=== PATIENT | male | born 1965 | race Caucasian/White ===

== ENCOUNTER 2025-01-04 08:00 | Outpatient (RCR) | payer OTHER, SELFPAY ==
--- NOTE | 2025-01-04 09:05 | BH.SGPN.GN ---
Behaviors/Verbalizations/Mental Status: [] Eye contact is good. Motor activity is appropriate. Appearance is casual. Speech is Appropriate. Mood is depressed. Affect is congruent. Thoughts are linear and logical. No evidence of psychosis. Reviewed daily check in sheet and no reports of suicidal ideations or intent. Client Response/Progress/Benefit: [] Pt participated at times during the group discussions. Attentive. Daily symptom tracker notes 2/5 for depression and anxiety. Today was pt's first day in IOP. Briefly introduced himself and shared that he recently admitted himself to a 30day residential facility for depression and anxiety. After discharge he was functioning well until recent decompensation. Shared primary stressor is that his daughter was diagnosed with cancer. No progress noted as this was pt's first day. Benefited from group support, encouragement, and feedback. Will continue in IOP to prevent decompensation, increase healthy coping, and provide support. Narrative Note: []
--- NOTE | 2025-01-04 10:01 | BH.COMM ---
Communication Note Communication with Client Communication Note: Met with pt to complete initial paperwork and administer the CSSR-S screening and risk assessment. Pt is a mild risk as pt denies having any past or current suicidal ideations. Pt denies history of suicide attempts and denies history of self-harm. Pt admits to having occasional thoughts of , but he shared ?I?ve seen too many people be impacted by suicide and I'd never do that.? No access to weapons. Discussed case with Dr. Najera and pt will be admitted to [facility] tx with a diagnosis of F33.2 MDD.
--- NOTE | 2025-01-04 10:10 | BH.SGPN.GN ---
Behaviors/Verbalizations/Mental Status: []Eye contact is fair. Motor activity is appropriate. Appearance is casual. Speech is Appropriate. Mood is euthymic. Affect is congruent. Thoughts are linear and logical. No evidence of psychosis. Client Response/Progress/Benefit: []Pt participated in the group discussions AEB providing input and taking notes. Attentive during psychoeducation on SMART Goal Setting. Pt worked with group to identify common barriers to goal setting which included; mental health struggles, energy/motivation, limited support, change to routine, lack or resources, having unrealistic goals, and our internal expectations. Group also identified benefits of goals, which included: promotes a sense of accomplishment, it challenges oneself, can boast confidence, and can cause positive change/growth. Benefited from increased awareness of mental health benefits of goals as well as psychoeducation on SMART goal criteria. Will continue in IOP to challenge distorted thoughts, increase consistent healthy coping skills, and prevent decompensation.
--- NOTE | 2025-01-04 11:10 | BH.SGPN.GN ---
Behaviors/Verbalizations/Mental Status: []Pt alert and oriented. Appearance is casual, hygiene is appropriate. Eye contact good. Motor activity appropriate. Speech within normal limits. Affect is anxious. Mood is constricted. Thoughts linear, logical, no signs of hallucinations or delusions. Client Response/Progress/Benefit: [] Pt was engaged during discussion and experiential activity. Completed the worksheet challenging them to develop a personal SMART goal. Pt chose a SMART goal to ?not upset my .? Believes this goal will benefit pt by ?having a better atmosphere at home.? Identified obstacles such as lack of discipline and poor follow through. Brainstormed strategies to help manage potential barriers. Benefited from this group by developing a short-term SMART goal related to mental health. Will continue IOP to prevent decompensation, reduce work-related stress, and improve daily functioning. ??? Narrative Note: []
--- NOTE | 2025-01-05 09:05 | BH.SGPN.GN ---
Behaviors/Verbalizations/Mental Status: [] Pt alert and oriented, neatly dressed and groomed. Eye contact good. Motor activity appropriate. Speech within normal limits. Affect constricted, mood anxious. Thoughts linear, logical, no signs of hallucinations or delusions. Reviewed pt?s symptom tracker, no risk for suicidal ideation, plan, or intent 01/05/25. Client Response/Progress/Benefit: []Pt was an active participant in group discussions. Attentive. Able to identify mental health wins including coming back for ?day two of IOP? and being able to accomplish some work last night. Pt's stressor today is his daughter?s health as she is ?half way through chemo.? The group offered pt suggests managing this stressor and emotional support which pt reported was helpful. Pt is feeling ?a little anxious.? this morning. Pt receptive to feedback from peers. Benefited from group support, encouragement, and feedback. Progress noted. Will continue IOP tx to prevent decompensation, increase use of healthy coping skills, and improve functioning. Narrative Note: []
--- NOTE | 2025-01-05 10:10 | BH.SGPN.GN ---
Behaviors/Verbalizations/Mental Status: []Eye contact is fair. Motor activity is appropriate. Appearance is casual. Speech is Appropriate. Mood is content. Affect is constricted. Thoughts are linear and logical. No evidence of psychosis. Client Response/Progress/Benefit: []Pt was an active participant in group discussions. Attentive during psychoeducation on the 4 communication styles (Passive, Passive-Aggressive, Aggressive, and Assertive) and the obstacles to effective communication. Contributed during interactive discussion on the benefits of communicating effectively. Worked well with peers to identify the benefits and disadvantages to the different communication styles. Pt believes that they are primarily assertive but can be aggressive if feeling unheard. Benefited from increased understanding of communication styles and how these can impact effective communication. Will continue in IOP to improve mood stability, challenge negative thoughts, and prevent decompensation. Narrative Note: []
--- NOTE | 2025-01-05 11:10 | BH.SGPN.GN ---
Behaviors/Verbalizations/Mental Status: []Pt alert and oriented, casually dressed and groomed. Eye contact good. Motor activity restless. Speech within normal limits. Affect congruent, mood euthymic and anxious. Thoughts linear, logical, no signs of hallucinations or delusions. Client Response/Progress/Benefit: [] Pt responded well to session AEB pt listening attentively to others and providing input during group discussion on the pay offs and costs of the different communication styles. Pt able to connect how current communication style impacts mental health. Connected with peers? comments about the importance of using assertive communication. Pt seemed to benefit from increasing awareness of healthy strategies to improve communication and worked with peers during the experiential activity to practice assertive communication. Pt engaged in self-reflection activity in which they identified what they want to work on to improve communication. Will continue IOP tx to improve emotion regulation, increase consistent use of healthy coping skills, and prevent decompensation.
--- NOTE | 2025-01-08 08:27 | BH.PSY.EVA_ITS ---
Intake Vital Signs 01/08/25 08:48 Height 1.83 m Weight: 121.563 kg BP 146/92 H Pulse 82 Intake Visit Reasons: Intake MDD Allergies No Known Allergies Allergy (Verified 01/08/25 08:26) Medications ?Medication ?Instructions ?Recorded ?Confirmed ?Type desvenlafaxine succinate 100 mg 100 mg PO DAILY 01/08/25 History tablet,extended release 24 hr (Pristiq) PFSH () Surgical History (Updated 01/08/25 @ 08:28 by Rosey Millan) History of varicose vein procedure HPI () History of Present Illness History provided by: patient Chief complaint: IOP intake for MDD HPI: Stuart is a 59y/o male who presented to [facility] IOP program for further evaluation and treatment of MDD and KAT. Stuart is initially from [place] but has lived in [facility] for over 20 years. He struggled with depression and anxiety for years and recently was in a residential program in [place] and completed 30 days which included PHP and he was discharged January 2024. Had done fairly well until August 2024 when he noticed increased mood dysregulation and significant anxiety and began to spiral. His daughter was then diagnosed with cancer in September 2024 and he has progressively had worsened depression with low energy, hopelessness, poor concentration, poor sleep, passive thoughts of related to daughter's illness, alteration in appetite. Patient presents to the [facility] IOP program due to concerns over this recent regression and worsened symptoms as he and are concerned that if this is not addressed now he will need to return to residential treatment. Today he endorses the symptoms as above and that he has been feeling depressed and anxious. When he was in [place] residential he was started on Pristiq which helped his anxiety a lot and helped his mood but he feels like his mood has backslid while anxiety has maintained slightly better control. Patient is not sure how long he is struggling with depression and anxiety however it sounds as though it may have gone back to childhood. He endorses that his dad had a history of depression and anger issues and was ultimately hospitalized in a locked unit and needed ECT, patient felt this was very traumatic and has since done EMDR which he did find helpful. He notes stressor of daughter being diagnosed with Hodgkin's lymphoma, she has a 98% chance of cure however he notes he focuses on the 2% chance of not being cured. She is on round 6 of chemo out of 12 and she moved home for her treatment. Patient has significant stress and anxiety over this, also notes that he no longer has significant contact with his sister or mother as he and sister had a disagreement 2 years ago and now they no longer talk. He felt his mother's care was inconsistent and he ultimately called APS and sister was upset and no longer speaks with him, he will occasionally talk to mom on the phone however she has Alzheimer's so they are very brief conversations and he is not sure how she was doing. This is an additional stressor. Patient notes he has not been sleeping well recently with poor concentration and difficulty with memory. Energy is a little bit better in the morning but waned significantly throughout the day. Patient denies any panic attacks, notes anxiety and that he has always been a worrier but this specifically has been better with Pristiq. When asked about OCD he said when he was traveling he used to have a lot of checking behaviors and would have to do certain things multiple times, this is improved with decrease in travel and Pristiq as well. No history of meg or psychosis, no active SI, no HI, AH, VH. No crying spells. Current psychiatric medications: Pristiq 100 mg, was placed on Pristiq in the residential program in [place] after they did a genetics test and after he moved home this was increased to 100 mg. Its helped overall mostly with anxiety and somewhat depression. Prior to that he was on sertraline which she did find some benefit from but was switched due to the genetic tests. Side effect concerns: Does note sexual side effects from the Pristiq and also from Zoloft and Prozac when he tried them Past psychiatric treatment Hx: -Previous diagnoses: MDD, KAT -Psychiatrist: Not presently -Therapist: Multiple therapists over the years, seeing Alex Gambino and does find that very helpful -Psychiatric hospitalizations: Hospitalized in residential treatment in [place] for 30 days and discharged in January 2024, also completed a [facility] program there. No other hospitalizations -Suicide attempts: No suicide attempts noted -Medication trials: Prozac, had sexual side effects and felt fuzzy when he was taking it. Went to zoloft but took the genetic test and was told to be on pristiq so changed medications Medical Hx: -Medical problems: LI, not using cpap as he did not tolerate the mask -Surgeries: Varicose vein surgery in 2003 -Allergies: No -Medications: See home med list Substance use Hx: -Alcohol: Once or twice a week -Drugs: No -Tobacco use: No Family Hx: -Mental illness: Father with depression, was hospitalized and had ECT when pt was 9 years old and struggled throughout his life -Suicide attempts or completions: No -Substance Use: No -General medical conditions: No Psychosocial: -Born/raised: Patient was born and raised in [place] but has been in [place] [facility] for the past 28 years. -Childhood: Patient's father had a lot of anger issues and problems with depression and was hospitalized when patient was 9 years old and ultimately required ECT and being in a locked unit -Parents: Father passed 7 years ago, mother is still alive however she is 90 years old and has Alzheimer's -Siblings: 1 sister who is a clinical nursing intern and still lives in [place] with their mother, they no longer speak -Current living situation and location: Presently lives in [facility] with his of 35 years and their daughter who is undergoing chemo. is a schoolteacher however with the daughter undergoing chemo she cannot work due to the potential to bring home illness -Marital status: to of 35 years as above -Children: 2 daughters, he has an older daughter who is 29 years old and , his 26-year-old daughter recently moved home to undergo chemo treatments for lymphoma. Prior to that she was living in [place] and had been gone 8 years and was working as an education trainer, they moved her home to be closer to family no support system while she underwent her treatments -Support system: is very supportive, patient also keeps in touch with multiple people from his residential hospitalization in [place] -Highest level of education: College degree, didn't do well academically but good with projects, went to a technical college and graduated -Employment hx/Income: Initially moved to [place] because he worked for a [employer] that was stationed here. Has had several jobs since and for the past 3-1/2 years he has worked at a [employer], works from home when he is not traveling, previously was traveling a significant amount, has cut back recently with mental health concerns and with daughter's illness - hx: No -Access to guns: No -Legal problems: Denies any arrests or detention time, 10 years ago did have to declare bankruptcy after they bought a house in [place] and then had problems with his job. Reports a significant mental stress for 2 years but now has good credit and is financially stable Medical ROS: General: Denies fever HENT: Denies headache EYES: Denies acute changes in vision Resp: denies shortness of breath Cardiac: Denies chest pain GI: denies changes in bowel, denies nausea/vomiting : Denies changes in urination MSK: Denies weakness Neuro: Denies any numbness/tingling Heme: Denies any bleeding or bruising Skin: Denies rashes Psychiatric: As above Exam () Mental Status Exam- Psych () Appearance casually dressed, adequately groomed and no apparent distress Attitude cooperative and calm Activity/Motor Behavior MSE activity/motor behavior finding no adventitious movements Speech regular rate and regular volume Mood depressed Affect full range Thought Process linear and logical Thought Content no delusions and no hallucinations Suicidal Ideation none Homicidal Ideation none Attention intact Concentration intact Sensorium/Orientation awake and alert Memory/Cognition intact Insight fair Judgement fair Assessment & Plan () Assessment & Plan (1) MDD (major depressive disorder), recurrent severe, without psychosis: Plan: Patient endorses depression, changes in appetite, low energy, hopelessness, helplessness, difficulty sleeping poor concentration, survival ambivalence. Sounds as though he struggled with this earlier in life and has had multiple episodes, patient overall cooperative and answered questions but somewhat vague on timelines and inciting incidents. Rule out PTSD as he did allude to some trauma and needing EMDR therapy which she found helpful. He does feel overall he has done well on Pristiq and does not want to change this medication, discussed augmenting with Wellbutrin given his sexual side effects to try to help with mood and to mitigate the symptoms if at all possible, he would like to think about this and keep his medications the same at this time and work with therapy and groups, this is reasonable. Patient was given name of medication and will look into this further before deciding Plan Detail Assessment: The patient will begin IOP in Behavioral Health at [facility]. The program's structure, support, education, and therapy aim to prevent deterioration of symptoms and avoid the need for PHP or inpatient hospitalization. I have a reasonable expectation that the patient will make practical improvements in their presenting symptoms and will be discharged to a lower level of care. Visit Details Comments: Spent a total of [ ] minutes on the date of the service which included [ ]. Charges/Coding Behavior Health Behavior Health Psychiatric Evaluation: 32011 Psych Diag Exam w/ Medical Services
--- NOTE | 2025-01-08 08:27 | BH.DR.ITP ---
Initial Treatment Plan Patient Information Visit Information: ADMISSION DATE: EXPECTED LOS: 6-8 weeks Diagnoses:: MDD, rec, sev Problems/Symptoms Problem #1:: MDD Symptom:: depression, changes in appetite, low energy, hopelessness, helplessness, difficulty sleeping poor concentration, survival ambivalence
--- NOTE | 2025-01-08 08:30 | BH.NA ---
Physical Data Vital Signs Pulse Rate: 82 Blood Pressure: 146/92 Height/Weight Height: 1.83 m Weight:: 121.563 kg Weight in Pounds: 268.0 lbs Current Medication Compliance Medication Compliance Do you take your medication as prescribed?: Yes Functional Assessment Sleep Pattern Describe any problems with sleeping: Client states he has been sleeping 6-7 hours per night. Sensory/Communication Assess Communication Problems Do you have difficulty understanding what people are saying?: No Medical Problems/History Gastrointestinal Conditions Gastrointestinal: Other (See comments) (GERD) Surgical History Surgical History Have you had any surgeries? If so, list type and date:: Yes (varicose vein procedure) Substance Abuse Substance Abuse Please describe substance abuse in the last 30 days:: Client reports having alcohol 3-4 times per week (usually wine, sometimes beer or bourbon) 2-3 glasses per evening. Client states he has been a tobacco user in the past but quit when he was 18. Client denies substance use. Client drinks 1-2 cups of coffee/tea per day. Mental Status Summary Mental Status Significant Findings/Observations on Appearance and Mood:: Client is alert and oriented x 4. Client is wearing a mask during assessment, client states due to his daughter's cancer diagnosis. Client is casually groomed with good hygiene. Client is cooperative with assessment. Client makes fair eye contact. Client's voice has normal rate and volume. Client appears to have an appropriate affect. Client makes logical associations and has normal processing. Client denies delusions/hallucinations. Client denies SI at this time. Suicide Assessment Suicidal Ideation Are you currently or have you been suicidal in the past?: Yes Suicidal Intentional Rating Scale (SIRS): Suicidal thoughts (past) Physician Notification Past Psychiatric History MH Treatment Hx Past Psychiatric Medications:: Zoloft, Prozac Age of first mental health symptoms: Client states he first took medication for mental health around 15 years ago, about age 44. Client states he has been taking medication for depression off and on since. Describe (age, circumstance, etc) any past hospitalizations: [facility]- residential program in [place] that included a PHP- January 2024 and client states he was there for 26 days. Current providers for mental health treatment (counselor, psychiatrist, case management associate, etc.): Alex at [facility] for therapy Fall Risk Assessment Age Age: Less than 60 Mental Status Mental Status: Willing & able to ask for assistance when needed Physical Status Physical Status: No problems Impairments Impairments: None Elimination Elimination: Continent AND independent Gait or Balance Gait or Balance: Walks independently Hx of Falls History of falls in the past 6 months: No known history Medications/Substances Psychotropics:: Antidepressants Medications/substances used within the past 24 hours or ordered to administer: 1-2 of the medications/substances listed above Total Score Total Points:: 1 RN Summary of Impressions Impressions Recommendations Impressions: Psychiatric Issues: major depressive disorder, recurrent severe, without psychosis Level of Care How do the client's current symptoms and functional deficits support need for this level of care?: Client presents to IOP at this time do to struggles with mental health. Client states he was in a residential place in [place] in January 2024 for mental health and states he felt somewhat better after, but states he began to spiral again by August 2024. Client states then his daughter was diagnosed with Hodgkin's Lymphoma in September 2024 and his mental health got worse. Client reports ruminations, hopelessness, decreased energy, decreased motivation, and mood dysregulation. Client denies SI, but does admit to some survival ambivalence regarding his daughters cancer diagnosis (why not me instead?). IOP will promote gains and prevent further decompensation while providing social support and skills training. Nutritional Screen Height/Weight Height: 1.83 m Weight:: 121.563 kg Weight in Pounds: 268.0 lbs Nutrition Screening Normal Weight: 120.202 kg Normal/Usual Weight in Pounds: 265.0 lbs Have you lost weight without trying: No Have you been eating poorly because of a decreased appetite: No Recently been on tube feeds, TPN, or have any nutritional access device in place: No Have any large open wounds or wounds that are not healing: No Calculated Weight Change: [id number] Change in weight Score: 1 MST Screening Tool Score: 1
[2025-01-08 08:48] VITALS: BP 146/92; PULSE 82
--- NOTE | 2025-01-08 10:10 | BH.SGPN.GN ---
Behaviors/Verbalizations/Mental Status: [] Pt alert and oriented, casually dressed and groomed. Eye contact good. Motor activity appropriate. Speech within normal limits. Mood: depressed. Affect: congruent. Thoughts linear, logical, no signs of hallucinations or delusions. Client Response/Progress/Benefit: [] Pt was an active participate during group discussions. Attentive during psychoeducation on self-sabotage and its impact on mental health. Worked with peers to define self-sabotage and identify reasons individuals perform self-sabotage behaviors (easy route at the time, feel as those we don't deserve any better, FOF, comfortable, etc). Pt identified the forms of self-sabotage that impact their mental health. Attentive during psychoeducation on types of self-sabotage; Procrastination, perfectionism, self-medication, poor communication,and chronic cancelling. Seemed to benefit from gaining awareness about the self-sabotage. Pt to continue IOP tx to prevent decompensation, increase healthy coping, and stabilize depression. Narrative Note: []
--- NOTE | 2025-01-08 11:15 | BH.MTP_ITS ---
Master Treatment Plan Patient Information Program Physician:: Dr. Cora Najera Primary Therapist:: Polo Rivera [facility] Psychiatric Diagnoses Psychiatric Diagnoses:: MDD (major depressive disorder), recurrent severe, without psychosis Diagnosis Code(s):: f33.2 Estimated LOS Estimated LOS (in weeks):: 8 Problem/Goal #1 Problem/Goal #1 Stated Goal:: Client will reduce depressive symptoms, worthlessness, lack of concentration, and negative core beliefs associated with major depressive disorder AEB self-report and decreased scores on depression domain of the DSM-5 Cross Cutting Scale. Description of Barriers: significant psychosocial stressors (daughter in chemo for cancer), inconsistent use of coping strategies, unrealistic expectations. Functional Impact: I've been spiraling. Significant ruminations, worry, uncertainty, and fear have impacted daily functioning. Goal Relevant Strengths/Supports: and daughters are primary support; Objectives Objective #1: Stated Objective: Client will identify 2-3 cognitive distortions and mistaken beliefs that lead to depressive symptoms and learn 2-3 ways to manage these thoughts to reduce symptoms. Interventions: Through individual and group counseling will provide education on the most cognitive distortions and mistaken beliefs. Will also teach client the connection between thoughts, emotions, and feelings. Therapist will use CBT and DBT techniques to help client gain awareness of thinking errors and learn how to more effectively handle negative thoughts. Discharge Criteria: Will be able to identify 2-3 commonly used cognitive distortions and mistaken beliefs as well as strategies to challenge/reframe. Target Date: 03/03/25 Review Date: 02/03/25 Objective #2: Stated Objective: Client will work with therapist to develop a concrete ?crisis plan? or emotional dysregulation plan to implement during depressive episodes or acute events which includes emergency telephone numbers, in ternal/external coping strategies for SI/overwhelming emotions, lists of supports, warning signs, positive aspects of life, and motivations Interventions: Through individual and group interventions with provide education on importance of a crisis plan? or emotional dysregulation plan which as well as strategies to implement in these plans. Discharge Criteria: Completed emotion regulation plan. Target Date: 03/03/25 Review Date: 02/03/25
--- NOTE | 2025-01-08 11:15 | BH.MDN ---
Multi-Disciplinary Note Note 45-min Individual: Time Started:: 11:15 Date: 01/08/25 Purpose of session/treatment goals addressed:: Reviewed current progress and symptoms. Used the session to gather pertinent psychosocial history and develop treatment plan goals. Eye Contact:: Good Motor Activity:: Appropriate Appearance:: Casual Speech:: Soft Mood:: Anxious and Dysthymic Affect:: Congruent Thoughts:: Linear, Logical and No evidence of hallucinations/delusions noted Staff Interventions:: rapport building, treatment planning and goal setting Client Response:: According to patient his first week in IOP is going well with no concerns or issues. He is finding group counseling to be beneficial. When asked about goals for treatment pt states Not to slip back into old ways. When asked to elaborate he states that he is looking to develop a plan that he can use when he notices himself spiraling . He shared recent examples of spiraling which seem to be triggers by psychosocial stressors and uncertainty. Also appears to be unrealistic expectations that he always be prepared of having plan to follow. Enjoys routine and structure, however recently significant stressor has made this difficulty. I fall apart without a plan. Primary stressor centers around his daughter's cancer and ongoing chemotherapy. Uncertainty, fear, and lots of unknowns which have led to significant anxiety, ruminations, and irritability. Entered IOP due to fear that he will decompensate and possibly require residential treatment again. Risks/Concerns:: No risks or concerns noted. Progress Toward Goals/Plan:: Consistent and engaged in IOP this week. Client would benefit further exploration of mistaken beliefs and cognitive distortions that guide his thoughts. Would also benefit from interventions to help manage the unexpected and uncertainty that have triggered decompensation in the past. Perhaps exposure goals related to spontaneity and approaching event w/o a plan. Will also work with pt to develop a emotion management plan which includes warning signs, internal coping skills, external coping skills, affirmations, and other skills. Will continue in IOP to prevent decompensation, increase healthy coping, and provide support. Time Stopped:: 12:00
--- NOTE | 2025-01-08 11:15 | BH.PSA_ITS ---
Source of Information Presenting Problems/Circumstances Problems, Referral Source, Mental Status, Client: Pt is a 59 year old make with dx of Major Depressive Disorder, recurrent, w/o psychosis. Previous admission to psychiatric residential facility in [place] in 2023. According to pt he completed a 30 days stay in residential which included a PHP program. He was recommended to follow up with IOP however never followed through. Reports that his mood was mostly stable till his daughter was diagnosed with cancer in September 2024 at which point he began to spiral. Daughter was dx'd with Hodgins Lymphoma and is currently undergoing chemo therapy. She has had to quit her job in [place] and move back with with parents (pt and his ) here is [place] as she undergoes treatment. Reports progressively worsening depression with low energy, hopelessness, poor concentration, poor sleep, poor appetite, and passive thoughts of . Psychiatric Presentation Psych Issues & Need for Admission Psychiatric Issues:: Major Depressive Disorder, significant psychosocial stressors (daughter has cancer), ruminations, fear, uncertainty. Past Psychiatric History MH Treatment Hx Treatment History: Multiple therapist over the years. Currently linked with local therapist. Previous admission to psychiatric residential treatment in January 2024. First hospitalization:: January 2024- Residential Facility- [place] Most recent hospitalization:: refer above Medication Trials:: Yes (refer to psych eval.) ECT Therapy:: No (Pt did have TMS in outpatient setting) Describe (age, circumstance, etc) any past hospitalizations: Age 58- Admitting to residential facility for 30 days due to significant anxiety and depression which was effecting his functioing at work and at home. Current providers for mental health treatment (counselor, psychiatrist, piano case and bench assembler, etc.): Alex Rice (therapist)- [facility] Childhood Significant Childhood Events: Patient's father has significant anger and depression. According to pt he was admitted to a psychiatric facility and was given ECT. Family Who currently lives in your home?: Currently live with his of 35 years and their 26 y/o daughter who is undergoing chemo-therapy. Describe family composition:: Pt has two daughter (29 and 26) who are both currently living in the area. Reports positive relationship with both. Pt was born and raised in [place] however has lived in [place] for the past 28 years. His father has passed however is mother (90) is stilling alive. He also has a sister however they have a poor relationship and do not communicate. Family History Family Hx of Psychiatric or AOD Problems: Father - Depression, Anger, had ECT Ethnicity Culture Do you identify yourself with any particular cultural, ethnic background, or community?: No Sexuality Sexual Orientation: Heterosexual Mental Status Memory Recent Memory: Good Remote Memory: Good Concentration Concentration: Fair Eye Contact Eye Contact: Good Speech Speech: Articulate Thought Process Thought Process: Logical and Ruminations Insight: Fair Judgment: Fair Behavior: Normal Orientation Orientation: Time, Person, Place and Situation Appearance Appearance: Appropriate Mood Mood: Anxious, Depressed, Sad and Irritable Affect Affect: Alert Violent Behavior/Abuse History Homicidal Ideation Do you have any homicidal thoughts? If so, explain:: No Safety Do you ever feel threatened in your home? If yes, describe:: No Adult Social History Age 18 to Present Describe your current support system:: Primary support is his of 35 years. Other support includes his daughters, co-workers, and friends. Substance Use Substance Substance Use Type: Alcohol Specific Drugs What specific drugs have you used?: Alcohol- once or twice a week. IV Substance Use Do you have a history of IV use?: denies Additional Information Additional Comments:: According to patient his a social drinker. Leisure/Social Activities Interests What do you enjoy or might be interested in learning about?: Strategies to not to slip back into old ways. Education & Occupational Histo Education What is your level of education?: Bachelor Degree Do you have any learning disabilities?: No Service Service Have you ever been in the ?: No Legal History Records Have you had any past legal charges?: No Do you have any current legal charges?: No Have you ever been incarcerated? If yes, describe:: No Court Orders Have you had any past court orders for psychiatric treatment?: No Do you have a present court order for psychiatric treatment?: No Problem Checklist Current Problem Areas Problem List: Depressed mood/sad, Anxiety, Anger/aggression, Impulsivity, Sleep problems and Additional psychosocial stressors (Daughter recently diagnosed with cancer and is undergoing chemotherapy treatments.) Discharge Planning Needs Anticipated Follow-Up Mental Health Center (Name/Phone Number):: [facility] Private Therapist/Psychiatrist:: Alex Rice [facility] Family and Caregiver Contacts:: Radha Kaufman- Release of Information Signed:: Yes (therapist and ) Medical Researcher's Assessment Client's Needs What are the client's feelings about the program?: He is looking forward to group counseling and support. What are the client's goals?: Hope to develop a plan that he can use when he notices himself spiraling . What are the client's strengths?: outgoing, intelligent, connect well with others Diagnoses Diagnoses Diagnosis #1:: Major Depressive Disorder, recurrent, severe, w/o psychosis. Interpretive Summary Interpretive Summary Interpretive Summary: Pt is a 59 year old make with dx of Major Depressive Disorder, recurrent, severe w/o psychosis. Previous admission to psychiatric residential facility in [place] in 2023. According to pt he completed a 30 days stay in residential which included a PHP program. He was recommended to follow up with IOP however never followed through. Reports that he mood was mostly stable till his daughter was diagnosed with cancer in September 2024 at which point he began to spiral. Daughter was dx'd with Hodgins Lymphoma and is currently undergoing chemo therapy. She has had to quit her job in [place] and move back with with parents (pt and his ) here is [place] as she undergoes treatment. Reports progressively worsening depression with low energy, hopelessness, poor concentration, poor sleep, poor appetite, and passive thoughts of . He describes mental health spiral as mood dysregulation, unhealthy habits, ruminations, worry, uncertainty. I'm falling apart at the seams. Denies active suicidal ideations, plan, or intent. No hx of attempts. Denies HI or psychosis. Denies substance abuse. Bi-monthly counseling. Medication compliant. Pt is concerned that recent significant psychosocial stressors will lead to continued decompensation and returning to residential treatment unless he engaged in structure treatment. He also reports his is concerned for his mental health and recent regression as well suggesting he seek out IOP. Treatment Plan Recommendations Recommendations Guidelines Recommendations:: Based on information provided by the pt he meets criteria for IOP level of care due to mental health impacting functioning, limited benefit from traditional outpatient, and significant psychosocial stressors.
--- NOTE | 2025-01-11 09:00 | BH.SGPN.GN ---
Behaviors/Verbalizations/Mental Status: [] Pt alert and oriented, casually dressed and groomed. Eye contact fair. Motor activity appropriate. Speech within normal limits. Affect constricted, mood sad. Thoughts linear, logical, no signs of hallucinations or delusions. Reviewed pt?s symptom tracker, no risk for suicidal ideation, plan, or intent. Client Response/Progress/Benefit: []Pt was an active participant in group discussions. Attentive. Able to identify mental health wins as went on a walk with his to engage in self-care. Pt's stressor today is youngest daughter just had her chemotherapy treatment and is hard to watch his daughter struggle during the first few days after her treatment. Pt stated he had a rough weekend with trying to take care of his daughter, felt like he froze and didn't handle it well. The group offered pt encouragement and emotional support which pt reported was helpful. Pt receptive to feedback from peers. Progress noted. Benefited from group support, encouragement, and feedback. Will continue IOP tx to increase emotion regulation, challenge negative thoughts, and prevent decompensation.
--- NOTE | 2025-01-11 10:15 | BH.SGPN.GN ---
Behaviors/Verbalizations/Mental Status: []Pt alert and oriented, casually dressed and groomed. Eye contact good. Motor activity appropriate. Speech within normal limits. Affect congruent, mood euthymic. Thoughts linear, logical, no signs of hallucinations or delusions. Client Response/Progress/Benefit: [] Pt participated during small group discussions. Attentive during psychoeducation about defense mechanisms. Showed engagement during small group discussions and helped group identify which defense mechanisms were maladaptive, adaptive, or ?somewhere in the oseguera.? Pt worked with small group on identifying how each defense mechanism can impact mental health and gave examples. Group was mostly educational and pts discussed the different types of defense mechanisms. Pt reported benefits from identifying examples of different defense mechanisms and normalizing why they are used. Seemed to benefit from gaining awareness about the different defense mechanisms. Pt to continue IOP tx to prevent decompensation, gain healthy coping skills, and improve daily functioning. ? Narrative Note: []
--- NOTE | 2025-01-11 11:15 | BH.SGPN.GN ---
Behaviors/Verbalizations/Mental Status: []Pt alert and oriented, casually dressed and groomed. Eye contact good. Motor activity appropriate. Speech within normal limits. Affect congruent, mood content. Thoughts linear, logical, no signs of hallucinations or delusions. Client Response/Progress/Benefit: [] Pt responded well to session, participating in activity and small group discussion. Group reviewed the rest of the defense mechanisms and discussed how these are adaptive, maladaptive, or somewhere in the oseguera. Pt's defense mechanisms included humor and supression. Shared that these reinforce unhealthy coping mechanisms. Pt listened to powertrain calibration engineer teach different skills to help pt?s cope with or change their defense mechanisms. Pt appeared to benefit from gaining insight to the different defense mechanisms and learning coping skills. Shared wanting to begin practicing more awareness of when using these defense mechanisms. Pt will continue IOP tx to prevent decompensation, improve distress tolerance skills, and increase emotion regulation. Narrative Note: []
--- NOTE | 2025-01-12 09:00 | BH.SGPN.GN ---
Behaviors/Verbalizations/Mental Status: []Eye contact is good. Motor activity is appropriate. Appearance is casual. Speech is Appropriate. Mood is dysthymic. Affect is congruent. Thoughts are linear and logical. No evidence of psychosis. Reviewed daily check in sheet and pt denies SI, plan, or intent as of this date 01/12/25. Client Response/Progress/Benefit: [] Pt was an active participant in group discussions. Attentive. Did well to identify 2 mental health wins, which included having a successful conversation with his family regarding his mental health. Reports they were supportive. Additional win noted as making plans to space out group days next week so he is not as tired as he was this week. Stressor noted as his daughter?s ongoing barr with cancer. Appeared to benefit from provided support, encouragement, and feedback. Will continue IOP tx to improve mood stability, develop healthy coping repertoire, and prevent decompensation. Narrative Note: []
--- NOTE | 2025-01-12 10:10 | BH.SGPN.GN ---
Behaviors/Verbalizations/Mental Status: []Pt alert and oriented, casually dressed and groomed. Eye contact good. Motor activity appropriate. Speech within normal limits. Affect congruent, mood focused. Thoughts linear, logical, no signs of hallucinations or delusions. Client Response/Progress/Benefit: [] Pt participated during the group discussion, providing input and remaining attentive during psychoeducation. Participated in experiential activity. Pt contributed during interactive discussion on the consequences of unhealthy expression of emotions. Worked with group to identify several consequences which included hurting relationships and isolating oneself. Contributing during interactive discussion on common potholes to effectively communicating. Pt was able to relate and make connections between the experiential activity and the overall topic, managing emotions through activity by ?resetting when needed.? Benefited from increased awareness of how stress and emotions can impact one's ability to communicate. Will continue in IOP to promote mood stability, reduce negative thinking patterns, and improve self-care. Narrative Note: []
--- NOTE | 2025-01-12 11:10 | BH.SGPN.GN ---
Behaviors/Verbalizations/Mental Status: []Eye contact is good. Motor activity is appropriate. Appearance is neat. Speech is Appropriate. Mood is content. Affect is congruent. Thoughts are linear and logical. No evidence of psychosis. Client Response/Progress/Benefit: [] Client engaged in session AEB client listening attentively to peers and providing input. Attentive during psychoeducation on 4 zones of regulation. Pt able to identify feelings and behaviors for each zone. Pt identified coping skills one can use to support self in each zone. Pt stated belief that pt is in the green zone today. Pt reports wanting to work on ?getting in my A-game mode? so pt can get closer to the yellow zone today. Reports the yellow zone helps with productivity. Benefited from increased education on zones of regulation or stages of alertness for emotions and healthy coping skills to use for each zone. Pt will continue IOP tx to promote mood stability, combat distortions, and improve self-care practices. Narrative Note: []
--- NOTE | 2025-01-13 09:00 | BH.SGPN.GN ---
Behaviors/Verbalizations/Mental Status: [] Pt alert and oriented, neatly dressed and groomed. Eye contact good. Motor activity appropriate. Speech within normal limits. Affect congruent, mood anxious. Thoughts linear, logical, no signs of hallucinations or delusions. Reviewed pt?s symptom tracker, no risk of suicidal ideation, plan, or intent 01/13/25. Client Response/Progress/Benefit: []Pt was an active participant in group discussions. Attentive. Per patients daily symptom tracker, pt indicates a 2/5 for depression, with a 5 being severe, and a 2/5 for anxiety. Pt's mental health positives included that he was able to pace himself with work, closing his laptop around 7, despite opening it again at 9m. He also was able to stay in the green zone during an argument between his daughter and . He reported being proud of himself, as he would typically be in the red zone during arguments. Pt's stressor was the recent argument within his family and the tension that it has been causing in the house. Pt seemed to benefit from support from peers. Will continue IOP tx to promote mood stability, reduce negative thinking patterns, and prevent decompensation.
--- NOTE | 2025-01-13 10:10 | BH.SGPN.GN ---
Behaviors/Verbalizations/Mental Status: [] Client alert and oriented, casually dressed and groomed. Eye contact good. Motor activity appropriate. Speech within normal limits. Affect congruent, mood euthymic. Thoughts linear, logical, no signs of hallucinations or delusions. Client Response/Progress/Benefit: [] Client responded well to session AEB taking notes throughout and listening attentively to others. Client was attentive throughout group activity identifying famous individuals and how they overcame failure to be successful. Client helped group identify how fear of failure can impact mental health and relationships. Client personally identified that worrying about what others think has lead to fear of failure to them. Client participated in experiential activity, working with group members to problem solve. Appeared to benefit from increased knowledge of fear of failure. Will continue IOP tx to prevent decompensation, reduce distorted thinking patterns, and reduce avoidance. Narrative Note: []
--- NOTE | 2025-01-13 11:05 | BH.MDN ---
Multi-Disciplinary Note Note 60-min Individual: Time Started:: 11:05 Date: 01/13/25 Purpose of session/treatment goals addressed:: Utilized session to review results of Mistaken Beliefs questionnaire. Treatment goal 1; obj 1 Eye Contact:: Good Motor Activity:: Appropriate Appearance:: Casual Speech:: Appropriate Mood:: Dysthymic Affect:: Congruent Thoughts:: Linear, Logical and No evidence of hallucinations/delusions noted Staff Interventions:: thought challenging, psychoeducation on: (mistaken beliefs), rapport building and other Client Response:: Pt talked at length regarding communication issues between himself as particularly his . Pt has insight regarding area of improvement and aspects of he communication he should change however has struggled to make any changes. Elaborated on how communication struggles impact his relationships and his depression. According to pt he almost lost my and life do his his mental health and is appreciative of her support. When asked his perspective on what his believes he needs to change he states that he can be dismissive, resistant to change, doesn't listen well, and becomes negative to quick. We processed and developed strategies to incorporate to improve communication skills. Ongoing theme of difficulty with change in plans, routine, and structure. Compulsion to problem-solve. I thrive on something to worry about. Difficulty with uncertainty, spontaneity, and the unexpected which cause exacerbate emotional dysregulation. Risks/Concerns:: No risks or concerns noted. Progress Toward Goals/Plan:: Consistent and engaged in IOP. Completed mistaken beliefs questionnaire. Self-worth tied to love and approval of others. Score significantly high on perfectionistic beliefs and unrealistic expectations of himself. Some insight into how these can impact his mental health and relationships however further exploration into these as well as action strategies are needed. He wishes to incorporate 3-2 daily skills to address mental health as a proactive stance to stability (journaling, manfulness, etc.). Progress noted. Will continue mistaken beliefs during next session. Time Stopped:: 12:05
--- NOTE | 2025-01-18 09:00 | BH.SGPN.GN ---
Behaviors/Verbalizations/Mental Status: [] Pt alert and oriented, neatly dressed and groomed. Eye contact good. Motor activity appropriate. Speech within normal limits. Affect congruent, mood calm. Thoughts linear, logical, no signs of hallucinations or delusions. Reviewed pt?s symptom tracker, no risk for suicidal ideation, plan, and intent 01/18/25. Client Response/Progress/Benefit: []Pt was an active participant in group discussions. Attentive. Per patients daily symptom tracker, pt indicates a 1/5 for depression and a 2/5 for anxiety, with 5 being severe. Pt reports having a better week, stating his positives as having dinner with his and daughter, and going out with friends over the weekend. Pt stated that he was happy to be able to get out and see friends, despite having to social distance and wear a mask due to his immunocompromised daughter. Pt's reported stressor is his mother's upcoming birthday. He states that this is a difficult time as he does not have many good childhood memories with his mother. He reports sending her a card and peña despite his complex feelings. Pt seemed to benefit from support from peers. Will continue IOP tx to promote healthy coping mechanisms, reduce negative thinking patterns, and prevent decompensation.
--- NOTE | 2025-01-18 10:15 | BH.SGPN.GN ---
Behaviors/Verbalizations/Mental Status: []Pt alert and oriented, casually dressed and groomed. Eye contact good. Motor activity appropriate. Speech within normal limits. Mood is present/engaged. Affect is congruent. Thoughts linear, logical, no signs of hallucinations or delusions. Client Response/Progress/Benefit: [] Pt was an active?participant in group discussions and experiential activity. Worked with peers to identify benefits of healthy relationships which included; support, shared experiences, laughter, understanding, and perspective challenge. Group identified factors that lead to unhealthy relationships which included; low self-esteem, trauma-bonding, poor communication, and manipulation/toxic behaviors. Pt shared not setting healthy boundaries has contributed to him having unhealthy relationships in his life. Benefited from increased insight and awareness of benefits of healthy relationships and factors that contribute to unhealthy relationships. Will continue IOP to challenge distortions, promote healthy coping skills, and prevent decompensation.
--- NOTE | 2025-01-18 11:15 | BH.SGPN.GN ---
Behaviors/Verbalizations/Mental Status: []Pt alert and oriented, casually dressed and groomed. Eye contact good. Motor activity appropriate. Speech within normal limits. Mood engaged. Affect congruent. Thoughts linear, logical, no signs of hallucinations or delusions. Client Response/Progress/Benefit: []Pt responded well to session, engaged and taking notes throughout. Worked with group to connect components of the experiential activity with characteristics of healthy and unhealthy relationships. Attentive during psychoeducation about characteristics of healthy, unhealthy, and abusive relationships. Pt identified wanting to take ?less control? so that his ?doesn?t feel worthless.? Appeared to benefit from identifying current healthy relationship attributes. Pt to continue IOP tx to promote mood stability, reduce negative thinking patterns, and improve self-care. Narrative Note: []
--- NOTE | 2025-02-10 09:00 | BH.SGPN.GN ---
Behaviors/Verbalizations/Mental Status: [] Pt alert and oriented, Casually dressed and groomed. Eye contact good. Motor activity appropriate. Speech within normal limits. Affect congruent, mood calm. Thoughts linear, logical, no signs of hallucinations or delusions. Reviewed pt?s symptom tracker, 0/5 with 5 being severe for risk for suicidal ideation, indicates a 0/5 for plan, and intent to kill self. Pt does not appear to be imminent risk to harm self.02/10/25. Client Response/Progress/Benefit: []Pt was an active participant in group discussions. Attentive. Per patients daily symptom tracker, pt indicates a 0/5 for depression and a 1/5 for anxiety, with 5 being severe. Pt stated that they had a difficult day, reporting their mood for the day as broken. Pt reported working for around 13 hours on Saturday, resulting in irritability, lashing out at family members, and feel mentally and physically exhausted. Pt reported feeling bad about his mood, stating that he went back to his old ways of dealing with stress, instead of using his new coping skills. Pt stated that his positives were understanding that he worked too much, and making a plan to limit work so that he does not get to that point again. Pt showed good insight into his triggers and how to better deal with them in the future. Pt was supportive and attentive to others in the group. Pt seemed to benefit from support from peers. Will continue IOP tx to promote healthy coping mechanisms, reduce negative thinking patterns, and prevent decompensation.
== END 2025-01-19 23:59 ==
LOC: BHIOP 08:00
PROVIDERS: PCP Internal Medicine; Referring Provider Internal Medicine; Visit Provider Internal Medicine
DX: F33.2 Major depressive disorder, recurrent severe without psychotic features (principal)
CPT/HCPCS: S9480; 90832; 90837; 90853

== ENCOUNTER 2025-01-20 08:09 | Outpatient (RCR) | payer OTHER, SELFPAY ==
--- NOTE | 2025-01-20 09:05 | BH.SGPN.GN ---
Behaviors/Verbalizations/Mental Status: [] Eye contact is good. Motor activity is appropriate. Appearance is casual. Speech is Appropriate. Mood is dysthymic. Affect is congruent. Thoughts are linear and logical. No evidence of psychosis. Reviewed daily check in sheet and no reports of suicidal ideations or intent. Client Response/Progress/Benefit: [] Pt was an active participant in group discussions. Attentive. Daily symptom tracker notes 3/5 for depression and 2/5 for anxiety/agitation. Pt shared that he daughter is receiving chemo treatment this AM which typically leads to significant somatic symptoms and overall horrible few days for his daughter. I wouldn't wish that on my worst enemy. Sad and low today as he is anticipating several difficulty days after her chemo. Elaborated on the emotional impact related to watching his daughter fo through cancer and chemo. Peers provided support and encouragement which was beneficial. Will continue in IOP to prevent decompensation, stabilize mood, and increase healthy coping to manage psychosocial stressors.
--- NOTE | 2025-01-20 10:10 | BH.SGPN.GN ---
Behaviors/Verbalizations/Mental Status: []Eye contact is good. Motor activity is appropriate. Appearance is casual. Speech is Appropriate. Mood is euthymic. Affect is congruent. Thoughts are linear and logical. No evidence of psychosis. Client Response/Progress/Benefit: [] Pt receptive to session AEB listening attentively to others and taking notes. Pt attentive and contributed throughout psychoeducation on the cognitive triangle and maintenance cycles. Pt engaged during group discussion reviewing the impact of daily activities and behaviors in either reinforcing unhealthy maintenance cycles and depression or assisting in reducing symptoms (?down? vs ?up? activities). Pt participated during interactive discussion in which pt identified their own common up activities (being with family and accomplishing tasks) and down activities (avoiding tasks). Appeared to benefit from increased awareness of current behaviors and impact these have on mental health. Will continue IOP to improve mood stability, increase self-compassion, and improve daily functioning. Narrative Note: []
--- NOTE | 2025-01-20 11:10 | BH.SGPN.GN ---
Behaviors/Verbalizations/Mental Status: []Pt alert and oriented, casually dressed and groomed. Eye contact fair. Motor activity appropriate. Speech within normal limits. Affect congruent, mood dysthymic. Thoughts linear, logical, no signs of hallucinations or delusions. Client Response/Progress/Benefit: [] Pt responded well to session, attentive and engaged in group discussions and activity. Actively engaged in continued discussion about up activities and down activities. Active participant as group discussed values and the benefits that knowing one's values can have on one's mental health. Client shared they would like to focus on strengthening their value of connections with others. Benefited from increased awareness of their up activities and how incorporating their values into behavioral activation goals can positively impact mental health. Will continue in IOP to promote use of healthy coping skills, challenge distortions, and prevent decompensation.
--- NOTE | 2025-01-21 09:05 | BH.SGPN.GN ---
Behaviors/Verbalizations/Mental Status: [] Eye contact is good. Motor activity is appropriate. Appearance is casual. Speech is Appropriate. Mood is euthymic. Affect is full. Thoughts are linear and logical. No evidence of psychosis. Reviewed daily check in sheet and no reports of suicidal ideations or intent. Client Response/Progress/Benefit: [] Pt was an active participant in group discussions. Attentive. Daily symptom tracker notes 2/5 for depression and anxiety. Able to identify mental health wins and healthy habits. He talked at length about the benefits mindfulness and living in the moment when one has a family member with an acute illness. Yesterday he was able to complete tasks, refram/challenge thoughts, and be present with the moments. Progress noted. Benefited from group support, encouragement, and feedback. Will continue in IOP to prevent decompensation, stablize mood, and increase healthy coping. Narrative Note: []
--- NOTE | 2025-01-21 10:15 | BH.SGPN.GN ---
Behaviors/Verbalizations/Mental Status: []Pt alert and oriented, neatly dressed and groomed. Eye contact good. Motor activity appropriate. Speech within normal limits. Affect constricted, mood anxious. Thoughts linear, logical, no signs of hallucinations or delusions. Client Response/Progress/Benefit: [] Pt was an active participant AEB taking notes and engaging in group activity. Connected with the topic of pitfalls and listened to group discussion on barriers that prevent from choosing a healthier path to mental wellness. Group worked together to identify examples of personal pitfalls. These examples included; having unrealistic expectations, not trusting, not asking for help, and shutting down. Pt benefited from group as Pt learned to better identify potential barriers to improving mental health symptoms. Pt will continue IOP tx to promote mood stability, reduce negative thinking patterns, and reinforce healthy coping skills. ?? Narrative Note: []
--- NOTE | 2025-01-21 11:05 | BH.MDN ---
Multi-Disciplinary Note Note 60-min Individual: Time Started:: 11:05 Date: 01/21/25 Purpose of session/treatment goals addressed:: Reviewed current symptoms and progress in IOP. Utilized session to continue discussion on mistaken beliefs (obj1) and identify proactive strategies to include on his emotion regulation plan. Eye Contact:: Good Motor Activity:: Appropriate Appearance:: Casual Speech:: Appropriate Mood:: Dysthymic Affect:: Congruent Thoughts:: Linear, Logical and No evidence of hallucinations/delusions noted Staff Interventions:: thought challenging, psychoeducation on: (Mistaken Beliefs), mindfulness skills and rapport building Client Response:: The patient processed and expressed emotions related to his daughter's recent chemotherapy treatment. He described a noticeable decline in her functioning and overall health for several days following each session, stating, ?She?ll be on the couch for days.? He also emphasized the need for strict hygiene and mask adherence, noting that ?even one little bug? could lead to significant health deterioration. This heightened vigilance has placed considerable strain on the entire family, with the patient sharing that ?my is worn out.? The ongoing stress continues to impact the patient?s mental health. He expressed feeling overwhelmed by the constant need to anticipate and plan for every possible scenario. His current focus is on ?getting through this all,? with the hope that emotional distress will lessen once his daughter?s cancer enters remission. The therapist gently challenged the patient?s cognitive patterns, encouraging him to seek moments of engagement and positive experiences rather than adopting a passive, [id number] approach. The patient is becoming more aware that his struggle with uncertainty and tendency to maintain rigid plans may be contributing to his distress. Strategies related to acceptance and spontaneity were discussed as potential exposure-based goals. The session also included a review of the patient?s goals from the previous week, which involved implementing three daily strategies to proactively support his mental health. He plans to begin journaling, and we discussed the importance of structure in his writing practice. He has successfully incorporated daily mindfulness?spending 15 minutes outside without distractions?and has committed to breaking his routine once daily to foster flexibility. Risks/Concerns:: no risks or concerns noted. Progress Toward Goals/Plan:: Limited progress as his mental health and functioning are often tied to his daughter's health, which is understandable given the situation. He is however receptive to creating positive experiences and engagement in safe settings rather than be passive. Consistent and engaged in IOP. Overall reports benefits from IOP. Will continue in IOP to prevent decompensation, provide support, and increase healthy coping. Time Stopped:: 12:00
--- NOTE | 2025-01-25 09:05 | BH.SGPN.GN ---
Behaviors/Verbalizations/Mental Status: [] Eye contact is good. Motor activity is appropriate. Appearance is casual. Speech is Appropriate. Mood is depressed and irritable. Affect is congruent. Thoughts are linear and logical. No evidence of psychosis. Reviewed daily check in sheet and no reports of suicidal ideations or intent. Client Response/Progress/Benefit: [] Pt was an active participant in group discussions. Attentive. Daily symptom tracker notes 5 for anxiety and 5 for depression. Attentive. It was an good weekend. According to pt his daughter rebounded quicker from chemo treatments. He attributes decreased tensions and intensity at the house to the addition of a kitten which has helped lighten the mood and provide distraction/purpose for daughter. Insight on the positive impact of changes on the environment when dealing with acute illness. Pt participated in group discussion on family conflict, boundaries, and its impact on our mental health using example of strained relationship with his sister. Benefited from group support, enocouragement, and feedback. Will continue in IOP to prevent decompensation, stabilize emotions, and increase healthy coping strategies. Narrative Note: []
--- NOTE | 2025-01-25 10:15 | BH.SGPN.GN ---
Behaviors/Verbalizations/Mental Status: [] Pt alert and oriented, casually dressed and groomed. Eye contact good. Motor activity appropriate. Speech within normal limits. Affect congruent, mood anxious and dysthymic. Thoughts linear, logical, no signs of hallucinations or delusions. Client Response/Progress/Benefit: [] Pt participated in group discussions. Attentive during psychoeducation on the CBT [place] (Thoughts, Behaviors, Emotions). Engaged in group discussion on how thoughts and behaviors can contribute to maintaining adverse feelings, such as depression, anxiety, and irritability. Completed worksheet in which pt identified obstacles and/or thoughts that are keeping them stuck. Shared obstacles that included; fear of failure, self-doubt, loneliness, and fear of judgement. Pt benefited from increased awareness of the basis of CBT therapy as well as specific thoughts that are impacting pt's progress. Will continue in IOP to prevent decompensation, increase healthy coping, and improve functioning. Narrative Note: []
--- NOTE | 2025-01-25 11:15 | BH.SGPN.GN ---
Behaviors/Verbalizations/Mental Status: []Pt alert and oriented, casually dressed and groomed. Eye contact good. Motor activity appropriate. Speech within normal limits. Affect congruent, mood calm. Thoughts linear, logical, no signs of hallucinations or delusions. Client Response/Progress/Benefit: [] Pt responded well to session, contributing to discussion and attentive throughout. Pt identified a negative thought that has kept them stuck. Pt's thought was my relationship with my sister.? Pt reported when they think this way, pt becomes angry and wants to avoid ?Pt worked to reframe the thought by finding more rational, realistic ways to look at the thoughts and then processed them within group setting. Pt reframed the thought to ?I have to accept that her behavior will not change.? Pt appeared to benefit from practicing challenging negative thinking with peers and gaining coping skills. Pt will continue IOP tx to promote use of healthy coping skills, combat all or nothing thinking, and improve self-compassion. Narrative Note: []
--- NOTE | 2025-01-27 09:00 | BH.SGPN.GN ---
Behaviors/Verbalizations/Mental Status: [] Pt alert and oriented, Neatly dressed and groomed. Eye contact good. Motor activity appropriate. Speech within normal limits. Affect congruent, mood calm. Thoughts linear, logical, no signs of hallucinations or delusions. Reviewed pt?s symptom tracker, 0/5 with 5 being severe for risk for suicidal ideation, indicates a 0/5 for plan, and intent to kill self. Pt does not appear to be imminent risk to harm self.01/27/25. Client Response/Progress/Benefit: []Pt was an active participant in group discussions. Attentive. Per patients daily symptom tracker, pt indicates a 0/5 for depression and a 0/5 for anxiety, with 5 being severe. Pt shared their mental health positives are calling his mother on her birthday despite having a difficult relationship with her, and texting his sister and remaining calm rather than getting angry at her short responses. Pt stated that he called his mom for the sake of his daughters as he knew that it means a lot to them. Pt's stressor was dealing with the grief of his 's former student being shot and killed. Despite this, Pt stated he was feeling balanced. Pt was supportive and attentive to others in the group. Pt seemed to benefit from support from peers. Will continue IOP tx to promote healthy coping mechanisms, reduce negative thinking patterns, and prevent decompensation.
--- NOTE | 2025-01-27 10:15 | BH.SGPN.GN ---
Behaviors/Verbalizations/Mental Status: [] Client alert and oriented, casually dressed and groomed. Eye contact good. Motor activity appropriate. Speech within normal limits. Affect congruent, mood euthymic. Thoughts linear, logical, no signs of hallucinations or delusions. Client Response/Progress/Benefit: [] Pt engaged in session AEB client listening attentively to peers and providing input. Attentive and contributed to discussion as group worked on defining self-forgiveness and identifying mental health benefit. Identified benefits as: reduce guilt/shame, increase self-confidence, decrease negative self-talk, healthier relationships, ect. ?Worked in small groups to identify factors that can make self-forgiveness difficult. Pt stated he is having a hard time forgiving himself for putting his family through is mental health journey. Pt identified a personal barrier to self-forgiveness. Benefited from increased education on self-forgiveness, benefits, and what effects it. Pt will continue IOP tx to challenge distortions, applying healthy skills/strategies more consistently outside treatment, and prevent decompensation.
--- NOTE | 2025-01-27 11:15 | BH.SGPN.GN ---
Behaviors/Verbalizations/Mental Status: [] Client alert and oriented, casually dressed and groomed. Eye contact good. Motor activity appropriate. Speech within normal limits. Affect congruent, mood dysthymic. Thoughts linear, logical, no signs of hallucinations or delusions. Client Response/Progress/Benefit: [] Pt engaged in session AEB client listening attentively to peers and providing input. Attentive during psychoeducation on the 4 R?s of Self-Forgiveness (Responsibility, Remorse, Episcopal, Renewal). Contributed to discussion as group worked on identifying strategies for improving ability to practice self-forgiveness. Reports wanting to practice thought challenging and not trying to immediately fix things. Engaged in self-forgiveness activity and benefited from increased education on self-forgiveness building skills. Pt will continue IOP tx to improve mood stability, increase self-compassion, and prevent decompensation. Narrative Note: []
--- NOTE | 2025-01-29 09:00 | BH.SGPN.GN ---
Behaviors/Verbalizations/Mental Status: [] Client alert and oriented, casual appearance. Eye contact good. Motor activity appropriate. Speech within normal limits. Affect congruent, mood irritable. Thoughts linear, logical, no signs of hallucinations or delusions. Reviewed client's symptom tracker, no risk for suicidal ideation, plan, or intent. Client Response/Progress/Benefit: [] Client responded well to session AEB listening to others and sharing thoughts/feelings. Client reported month of positive as making it retirement through IOP program. Client stated mental is positive as being able to maintain calmness despite a roller coaster a week with poor communication with his family. Client noted additional month positive as being able to put a 0 for depression today on a symptom tracker. Client noted feeling motivated today to get his ceiling painting which is something he has put off for a long time. Appeared to benefit from support from peers. Will continue IOP tx to increase consistent utilization of healthy coping skills, challenge negative thought patterns, and prevent decompensation.
--- NOTE | 2025-01-29 10:15 | BH.SGPN.GN ---
Behaviors/Verbalizations/Mental Status: []Pt alert and oriented, neatly dressed and groomed. Eye contact good. Motor activity appropriate. Speech within normal limits. Affect constricted, mood euthymic. Thoughts linear, logical, no signs of hallucinations or delusions. Client Response/Progress/Benefit: [] Pt engaged and actively participating in discussion, taking notes. Pt attentive during psychoeducation about the window of tolerance and noted personal connections. Group identified what contributes to low distress tolerance. The group gained awareness of the three zones of tolerance and pt was able to identify what they look like in each zone. Pt shared personal signs in hyperarousal zone are: racing heart, anger, and over-working. Pt shared signs in the window of tolerance, they feel productive and motivated. Pt appeared to benefit from psychoeducation on distress tolerance and practicing self-reflection. Pt will continue IOP tx to promote mood stability, reduce negative self-talk, and gain more work-life balance. Narrative Note: []
--- NOTE | 2025-01-29 11:15 | BH.MDN ---
Multi-Disciplinary Note Note 45-min Individual: Time Started:: 11:15 Date: 01/29/25 Purpose of session/treatment goals addressed:: Reviewed current symptoms and progress in IOP. Addressed treatment plan goal1; obj2. Working on coping strategies for daily implementation. Eye Contact:: Good Motor Activity:: Appropriate Appearance:: Casual Speech:: Appropriate Mood:: Euthymic Affect:: Full Thoughts:: Linear, Logical and No evidence of hallucinations/delusions noted Staff Interventions:: rapport building Client Response:: Pt states that this week was a rollercoaster. Elaborated on the several events that triggered emotional shifts, stress, and thoughts. Allowed pt to vent for an extended period of time. Shared the beneficial aspects of a psychoeducation group this week on self-forgiveness. While it was difficult at times overall it was very beneficial. From pt's perspective he has been making improvements on daily goals. Decreased impulsivity, more effective communication, and improved anger management. Also reports improved acceptance of uncertainty. All these have helped decrease anxiety, depression, and stress. Improved relationships with family and decreased tension in the house. This has resulted in increase motivation as well. Motivated to tackle a project this weekend. Haven't felt like that in a long time. Risks/Concerns:: no risks or concerns noted. Progress Toward Goals/Plan:: Progress noted. Continues to be consistent and engaged in IOP. Pt utilized session to vent frustrations today. Overall progress reported. Following through with daily proactive daily goals/strategies which will be added to on concrete emotional regulation plan (obj 1). Next session will focus more on education on cognitive distortions to complement previous discussions on mistaken beliefs. Will continue in IOP to prevent decompensation, stabilize mood, and improve functioning. Time Stopped:: 12:00
--- NOTE | 2025-02-01 09:00 | BH.SGPN.GN ---
Behaviors/Verbalizations/Mental Status: [] Pt alert and oriented, casually dressed and groomed. Eye contact good. Motor activity appropriate. Speech within normal limits. Affect congruent, mood calm. Thoughts linear, logical, no signs of hallucinations or delusions. Reviewed pt?s symptom tracker, 0/5 with 5 being severe for risk for suicidal ideation, indicates a 0/5 for plan, and intent to kill self. 02/01/25 Client Response/Progress/Benefit: []Pt was an active participant in group discussions. Attentive. Per patients daily symptom tracker, pt indicates a 0/5 for depression and a 1/5 for anxiety, with 5 being severe. Pt shared their mental health positives as attending a friend's libertarian with his family, including his youngest daughter who is immunocompromised. Pt states that his daughter was able to attend due to the libertarian being outside. He stated that this was a positive experience as it felt normal. His other positive was being productive over the weekend and painting a ceiling in his home. Pt reported his stressor as having to balance IOP and a work trip this week, stating that after he gets back from his trip, he has to self isolate to ensure he is not compromising his daughter's health. Pt also reports that he will be unable to help his deal with both his youngest daughter's chemo and an operation that his oldest daughter is having due to being away for work. Pt was supportive and attentive to others in the group. Pt seemed to benefit from support from peers. Will continue IOP tx to promote healthy coping mechanisms, reduce negative thinking patterns, and prevent decompensation.
--- NOTE | 2025-02-01 10:15 | BH.SGPN.GN ---
Behaviors/Verbalizations/Mental Status: [] Eye contact is good. Motor activity is appropriate. Appearance is casual. Speech is Appropriate. Mood is content. Affect is congruent. Thoughts are linear and logical. No evidence of psychosis. Client Response/Progress/Benefit: [] Pt engaged in session AEB listening attentively to others and providing input throughout. Pt engaged in activity, able to connect how it can be uncomfortable and difficult to practice acceptance when situations are out of one?s own control. Identified what they are struggling to accept in personal life. Worked with peer group to define acceptance and identify the benefits that acceptance can bring. Benefits included; reduce anxiety, reduced stress, helps one to focus on situations we can change, and decreased negative self-talk. Seemed to benefit from increased awareness of the meaning as well as the importance of acceptance. Will continue in IOP to improve emotion regulation, challenge distortions, and prevent decompensation. Narrative Note: []
--- NOTE | 2025-02-01 11:15 | BH.SGPN.GN ---
Behaviors/Verbalizations/Mental Status: []Pt alert and oriented, casually dressed and groomed. Eye contact good. Motor activity appropriate. Speech within normal limits. Affect congruent, mood stressed. Thoughts linear, logical, no signs of hallucinations or delusions. Client Response/Progress/Benefit: [] Pt responded well to session AEB taking notes and contributing to discussion throughout. Pt engaged as group continued discussion on acceptance and the mental health benefits of practicing acceptance. Pt and peers identified what makes acceptance challenging and pt completed a self-reflection exercise on what is hard to accept in pt's life. Pt identified something that is currently hard to accept as ?my relationship change with my sister.? Pt stated by not accepting this, it leads to ?feeling like a continuous chess game?. Group identified strategies to increase acceptance. Pt noted wanting to work on ?living in the [place] and mindfully feeling? as a strategy for improving acceptance. Pt appeared to benefit from gaining insight and learning strategies to increase acceptance. Pt will continue IOP tx to promote mood stability, reinforce healthy coping skills, and combat distortions. ? Narrative Note: []
--- NOTE | 2025-02-02 09:00 | BH.SGPN.GN ---
Behaviors/Verbalizations/Mental Status: [] Eye contact is good. Motor activity is appropriate. Appearance is casual. Speech is Appropriate. Mood is anxious. Affect is congruent. Thoughts are linear and logical. No evidence of psychosis. Client Response/Progress/Benefit: [] Pt was an active participant in group discussions. Attentive. Shared anxiety related to upcoming events. Elaborated on the events and reasons they are causing anxiety and uncertainty. Benefited from group support, encouragement, and feedback. Will continue in IOP to prevent decompensation, increase healthy coping, and stabilize depression Narrative Note: []
--- NOTE | 2025-02-02 10:10 | BH.SGPN.GN ---
Behaviors/Verbalizations/Mental Status: [] Pt alert and oriented, casually dressed and groomed. Eye contact good. Motor activity appropriate. Speech within normal limits. Affect congruent, mood euthymic. Thoughts linear, logical, no signs of hallucinations or delusions. Client Response/Progress/Benefit: [] Pt responded well to session AEB sharing and listening attentively to others. Group provided examples of types of support (professional, pets, hobbies, community, spouse, spirituality, co-workers, family, etc) as well as benefits of having social support, including: validation, get perspective, and accountability. Pt also participated in group discussion regarding the barriers to accessing support and pt?s barriers included; isolation, overconfidence, reliance on unhealthy coping, and self-sabotage. Pt participated in experiential activity illustrating the impact communication, boundaries, and patience play in creating healthy support systems. Pt appeared to benefit from increased knowledge of the benefits of social support and greater self-awareness. Pt to continue IOP to prevent decompensation, increase healthy coping, abd provide support. Narrative Note: []
--- NOTE | 2025-02-02 11:10 | BH.SGPN.GN ---
Behaviors/Verbalizations/Mental Status: []Client alert and oriented, casually dressed and groomed. Eye contact good. Motor activity appropriate. Speech within normal limits. Affect congruent, mood content. Thoughts linear, logical, no signs of hallucinations or delusions. Client Response/Progress/Benefit: [] Pt participated throughout AEB contributing to discussion, providing examples, and taking notes. Pt provided input during discussion on the types of support our supports can provide. Pt able to identify current support system and barriers that get in the way of using supports. Pt reported after identifying what type of supports pt receives, pt gained awareness that pt could benefit from more emotional support by continuing to open up to his . Pt seemed to benefit from identifying the type of support pt needs to work on improving. Pt recommended to continue IOP tx to promote increase positive self-talk, improve mood stability, and prevent decompensation. Narrative Note: []
--- NOTE | 2025-02-03 14:00 | BH.MTP_ITS ---
Treatment Plan Review Demographics Date of Admission:: 01/04/25 Date of Treatment Plan Review:: 02/03/25 Admitting Diagnoses:: Major Depressive Disorder. recurrent, severe, w/o psychosis Current Diagnoses:: Major Depressive Disorder. recurrent, severe, w/o psychosis Patient Status Patient's Response to Treatment:: The patient remains consistent and actively engaged in the Intensive Outpatient Program (IOP) level of care. They provide appropriate feedback during sessions and self-report meaningful benefits from participation in the program. Outcome measures indicate a significant overall reduction in symptoms, with a 46% decrease on the DSM-5 Cross-Cutting Symptom Measure since admission. Domain- specific improvements include: Depression: 40% reduction Anxiety: 25% reduction Anger: 50% reduction Additional improvements were noted in sleep quality, memory functioning, and somatic symptomatology. The patient is demonstrating follow-through with daily proactive goals and strategies. These will be incorporated into a structured emotional regulation plan (Objective 1). Future sessions will place increased emphasis on psychoeducation regarding cognitive distortions, building upon prior discussions related to mistaken beliefs. Status of Current Problems and Symptoms: The patient reports an overall reduction in symptoms related to anxiety and anger. He has actively worked on developing and applying skills in anger management, impulsivity control, effective communication, acceptance, and coping with uncertainty. A significant focus of treatment has been processing the complex emotions and thoughts surrounding his daughter?s cancer diagnosis and ongoing chemotherapy. The uncertainty, fear, and anger associated with her condition have been persistent and significant triggers for emotional decompensation. Her treatment progress and response to chemotherapy remain a constant source of stress for the patient. Progress Problem #1: Problem Name:: Depression Status of Goals:: Obj 1- Not complete; Pt was able to identify mistaken beliefs which impact thoughts (perfectionism, unrealistic expectations). Has been introduced to cognitive distortions however work is still needed in regards to awareness and skills to reframe Obj 2- Not complete; Pt continues to attend group and obtain coping strategies. Next step is to take effective strategies and place them in a concrete plan. Team Recommendations:: Continue with IOP and weekly counseling.
--- NOTE | 2025-02-05 09:02 | BH.SGPN.GN ---
Behaviors/Verbalizations/Mental Status: [] Pt alert and oriented, neat and casually dressed and groomed. Eye contact good. Motor activity appropriate. Speech within normal limits. Affect congruent, mood irritable and anxious. Thoughts linear, logical, no signs of hallucinations or delusions. Reviewed pt?s symptom tracker, pt reports suicidal ideation as a 1/5 which is within pt baseline. Denies plan or intention. Client Response/Progress/Benefit: [] Client responded well to session as evidenced by listening attentively to others, providing feedback, and processing with group. Per symptom tracker client reported a 1/5 for agitation and a 1/5 for anxiety. Client reported mental health positive as making it through a busy and difficult week. Did well to identify several skills he used to successfully do so. Shared using thought challenging and reaching out to supports for help. Noted some guilt about being out of town while his daughters both underwent medical procedures. Reports reminding himself that his told him to go and that he is still contributing to the family. Additional win noted as making plans for self-care this weekend. Stressor noted as waking up feeling tired today as a result. Client seemed to benefit from support from others and the group environment. Client to continue IOP to promote skill application, improve mood stability, and prevent decompensation. Narrative Note: []
--- NOTE | 2025-02-05 10:15 | BH.SGPN.GN ---
Behaviors/Verbalizations/Mental Status: []Pt alert and oriented, casually dressed and groomed. Eye contact good. Motor activity appropriate. Speech within normal limits. Affect congruent, mood slightly anxious. Thoughts linear, logical, no signs of hallucinations or delusions. Client Response/Progress/Benefit: [] Pt was an attentive and active participant, AEB taking notes and providing input in group discussion. Attentive during psychoeducation. Pt engaged during interactive discussion in which the group defined self-care and discussed its benefits. Group discussed barriers and benefits to self-care. Identified benefits as being more productive, less physical pain, feeling happier, less irritability, and being more capable. Pt participated in small groups where they worked to identify and challenged common self-care ?myths?. Benefited from increased awareness of self-care, its benefits, and the consequences of not utilizing self-care strategies. Pt connected with myths of self-care being selfish. Will continue IOP tx to promote mood stability, increase self-care practices, and improve daily functioning. Narrative Note: []
--- NOTE | 2025-02-05 11:00 | BH.MDN ---
Multi-Disciplinary Note Note 45-min Individual: Time Started:: 11:00 Date: 02/05/25 Purpose of session/treatment goals addressed:: Review outcomes and treatment plan progress. Psychoeducation on cognitive distortions (goal 1; obj 1). Eye Contact:: Good Motor Activity:: Appropriate Appearance:: Casual Speech:: Appropriate Mood:: Dysthymic Affect:: Congruent Thoughts:: Linear, Logical and No evidence of hallucinations/delusions noted Staff Interventions:: psychoeducation on: (cognitive distortions) and reviewed DSM-5 Client Response:: Pt shared psychosocial stressors this week as well as coping strategies. Attentive as we reviewed 4 week outcome scores. Introduced cognitive distortions and provided example of common cognitive distortions. Gave homework to review list of 17 cognitive distortions and to identify top 5. Plan to discuss and introduce reframing and challenging strategies. Risks/Concerns:: No risks or concerns noted. Progress Toward Goals/Plan:: Outcome score show a 46% overall symptom reduction (refer to tx plan review). The patient also self-reports an overall reduction in symptoms related to anxiety and anger. He has actively worked on developing and applying skills in anger management, impulsivity control, effective communication, acceptance, and coping with uncertainty. Responding well to IOP. Benefits a great deal from group support. Time Stopped:: 11:45
--- NOTE | 2025-02-08 09:00 | BH.SGPN.GN ---
Behaviors/Verbalizations/Mental Status: [] Pt alert and oriented, casually dressed and groomed. Eye contact good. Motor activity appropriate. Speech within normal limits. Affect congruent, mood calm. Thoughts linear, logical, no signs of hallucinations or delusions. Reviewed pt?s symptom tracker, 0/5 with 5 being severe for risk for suicidal ideation, indicates a 0/5 for plan, and intent to kill self. Pt does not appear to be imminent risk to harm self.02/08/25. Client Response/Progress/Benefit: []Pt was an active participant in group discussions. Attentive. Per patients daily symptom tracker, pt indicates a 0/5 for depression and a 1/5 for anxiety, with 5 being severe. Pt shared their mental health positives as being more productive over the weekend, stating that despite his dislike for it, he helped his with yard work. His other positive was getting some errands done before coming to IOP. Pt also reported engaging in a lot of self-care over the weekend after an emotionally and physically tiring week. Pt's stressor is balancing work with his IOP appointments, stating that it can be stressful trying to balance both responsibilities. Pt was supportive and attentive to others in the group. Pt seemed to benefit from support from peers. Will continue IOP tx to promote healthy coping mechanisms, reduce negative thinking patterns, and prevent decompensation.
--- NOTE | 2025-02-08 10:10 | BH.SGPN.GN ---
Behaviors/Verbalizations/Mental Status: []Pt alert and oriented, casually dressed and groomed. Eye contact good. Motor activity appropriate. Speech within normal limits. Affect congruent, mood content. Thoughts linear, logical, no signs of hallucinations or delusions. Client Response/Progress/Benefit: [] Pt receptive to session AEB contributing to group discussion, as well as listening attentively to others, and taking notes. Worked with group to brainstorm the positive and negative aspects of stress on physical and mental health as well as the impact of distress on performance, relationships, and mental health. Pt shared their current personal top stressors to be: daughter?s health, daughter fertility, and work. Shared when feeling overwhelmed with stress pt tends become angry. Benefited from increased awareness of positive and negative stress as well as how stress impact individuals. Will continue in IOP to prevent decompensation, improve daily functioning, and reduce negative thinking patterns. Narrative Note: []
--- NOTE | 2025-02-08 11:15 | BH.SGPN.GN ---
Behaviors/Verbalizations/Mental Status: []Eye contact is good. Motor activity is appropriate. Appearance is casual. Speech is Appropriate. Mood is stressed. Affect is congruent. Thoughts are linear and logical. No evidence of psychosis. Client Response/Progress/Benefit: [] Pt was an attentive participant in group discussions and actively engaged during experiential activity. Attentive during psychoeducation on the 4 A's (Avoid, adapt, alter, accept) of coping with stress. Identified one of the 4 A's to address one their top stressors. Participated with peers on identifying the connection between the experiential activity and utilization of stress management skills. Pt shared wanting to work on saying no more often to unnecessary stress. Benefited from increased awareness of stress management strategies. Pt will continue IOP to improve self-care practices and reinforce healthy coping skills. Narrative Note: []
--- NOTE | 2025-02-10 10:10 | BH.SGPN.GN ---
Behaviors/Verbalizations/Mental Status: [] Eye contact is fair to good. Motor activity is appropriate. Appearance is casual. Speech is soft, limited input. Mood is euthymic. Affect is congruent. Thoughts are linear and logical. No evidence of psychosis. Client Response/Progress/Benefit: [] Client was an active participant in group discussion and experiential activity. Attentive during psychoeducation on resilience. Participated in interactive discussion with peers on the definition of resilience and where it comes from. Group identified that resiliency can be impacted by; past experiences, personality, and current mental health state. Client gave personal example of resiliency with going to public school and still being successful even though his sibling got to go to private. Group also worked together to identify the benefits of being resilient and how it is related to mental health. Able to relate experiential activity of group juggle to topics of resilience. Worked well with peers in small group in which they identified factors that contribute to resilience. Benefited from increased awareness of resilience and the factors that contribute to building resilience. Will continue in IOP to prevent decompensation and further promote mood stability. Narrative Note: []
--- NOTE | 2025-02-10 11:10 | BH.SGPN.GN ---
Behaviors/Verbalizations/Mental Status: [] Client alert and oriented, casually dressed and groomed. Eye contact fair. Motor activity appropriate. Speech within normal limits. Affect congruent, mood euthymic . Thoughts linear, logical, no signs of hallucinations or delusions Client Response/Progress/Benefit: [] Client responded well to session AEB completing the resilience worksheet provided. Client participated in the discussion and worked cooperatively with group to identify strategies to enhance each of the components discussed. Client reports belief they already use resilience trait of ?makng connections.? Client stated they would like to continue to develop resilience trait of ?self awareness.? Client seemed to benefit from discussing strategies for improving personal resilience and identifying resilience traits Client already possesses.. Will continue IOP tx to promote mood stability, reduce negative thinking patterns, and increase distress tolerance skills. Narrative Note: []
--- NOTE | 2025-02-12 09:00 | BH.SGPN.GN ---
Behaviors/Verbalizations/Mental Status: [] Pt alert and oriented, Casually dressed and groomed. Eye contact good. Motor activity appropriate. Speech within normal limits. Affect congruent, mood calm. Thoughts linear, logical, no signs of hallucinations or delusions. Reviewed pt?s symptom tracker today, denies suicidal ideation, plan, and intent.02/12/25. Client Response/Progress/Benefit: []Pt was an active participant in group discussions. Attentive. Per patients daily symptom tracker, pt indicates a 0/5 for depression and a 1/5 for anxiety, with 5 being severe. Pt shared their mental health positive as readjusting his schedule to prioritize resting after he had overworked himself the previous day. His other mental health positive was getting a lot of sleep the previous night, which he had been struggling with due to anxiety about work and family. Pt's stressor was the cold weather, stating that this gloomy weather typically negatively affects his mood. Pt reports feeling overall better in mood and ability to function based on his daily mood tracker. Pt was supportive and attentive to others in the group. Pt seemed to benefit from support from peers. Will continue IOP tx to promote healthy coping mechanisms, reduce negative thinking patterns, and prevent decompensation.
--- NOTE | 2025-02-12 10:15 | BH.SGPN.GN ---
Behaviors/Verbalizations/Mental Status: [] Eye contact is good. Motor activity is appropriate. Appearance is casual. Speech is Appropriate. Mood is irritable. Affect is congruent. Thoughts are linear and logical. No evidence of psychosis. Client Response/Progress/Benefit: [] Pt was engaged and participating throughout, providing input and taking notes. Attentive during psychoeducation on anxiety and cognitive triangle. Participated in an interactive discussion on defining anxiety and identifying cognitive and physiological symptoms of anxiety. The group discussed helpful vs harmful anxiety. Pt along with peers worked together to identify common physical/physiological signs of anxiety which included: butterflies in stomach, tension, increased HR, trembling, dry mouth, headaches, numbness/tingling, hot flashes, sweating, and blurry vision. Benefited from increased awareness and insight on anxiety and its impact. Will continue in IOP to maintain safety, prevent decompensation, stabilize mood, and promote use of healthy coping skills. Narrative Note: []
--- NOTE | 2025-02-12 11:15 | BH.MDN ---
Multi-Disciplinary Note Note 60-min Individual: Time Started:: 11:15 Date: 02/12/25 Purpose of session/treatment goals addressed:: Used the session to provide psychoeducation and review cognitive distortions (Goal 1; obj 1/2). Also processed recent decompensation episode to increase awareness, insight, triggers, and action plan. Eye Contact:: Good Motor Activity:: Appropriate Appearance:: Casual Speech:: Appropriate Mood:: Anxious Affect:: Full and Congruent Thoughts:: Linear, Logical and No evidence of hallucinations/delusions noted Staff Interventions:: thought challenging, psychoeducation on: (cognitive distortions) and CBT techniques Client Response:: The patient completed the assigned homework on cognitive distortions and identified Mind Reading, Discounting Positives, and Blaming as patterns he frequently engages in. During the session, the patient was focused on a recent episode of decompensation that occurred on 02/09/2025. He reported that his exacerbated symptoms were brought to his attention by family members, prompting reflection on the impact of his emotional state on those around him. Together, we processed the events of that evening with the goal of identifying potential triggers and using the experience as an opportunity for increased insight and self-awareness. The patient described working ?13 hours straight? due to an unexpected issue at work, stating, ?I just pushed through it.? Following this prolonged work period, he experienced heightened irritability, frustration, and agitation, which culminated in a mental health decompensation. He acknowledged that he did not utilize healthy coping strategies during this time. The patient?s primary coping mechanisms?planning and pushing through?were explored, as these often contribute to emotional dysregulation rather than alleviating distress. We collaboratively identified proactive action strategies that could serve as more adaptive interventions moving forward.The therapist emphasized the importance of acceptance and discussed the potential benefit of incorporating exposure-based goals to help the patient build tolerance for uncertainty and unplanned events. Risks/Concerns:: no risks or concerns noted. Progress Toward Goals/Plan:: The patient remains consistent and engaged in the Intensive Outpatient Program (IOP) level of care. He self-reports progress and demonstrates the ability to identify proactive coping strategies. However, he continues to experience difficulty managing [id number] distress, particularly when confronted with unexpected stressors. There is mild resistance to exposure-based interventions aimed at increasing tolerance for situations where control is limited. This resistance appears to be rooted in discomfort with uncertainty and unpredictability. The patient will continue participation in IOP to support stabilization, prevent further decompensation, and strengthen the use of healthy coping mechanisms. Time Stopped:: 12:15
--- NOTE | 2025-02-15 09:00 | BH.SGPN.GN ---
Behaviors/Verbalizations/Mental Status: [] Pt alert and oriented, Casually dressed and groomed. Eye contact good. Motor activity appropriate. Speech within normal limits. Affect congruent, mood calm. Thoughts linear, logical, no signs of hallucinations or delusions. Reviewed pt?s symptom tracker today, denies suicidal ideation, plan, and intent.02/15/25. Client Response/Progress/Benefit: []Pt was an active participant in group discussions. Attentive. Per patients daily symptom tracker, pt indicates a 0/5 for depression and a 1/5 for anxiety, with 5 being severe. Pt shared their mental health positive as going to see a show with his over the weekend, stating that it was nice to have some normality in his life in the midst of traveling and his daughter's cancer. Pt's other mental health win was getting chores done on Saturday, and feeling accomplished. Pt also stated that they feel that they have been more in control of their emotions and reactions on good and bad days after being in IOP. Pt's stressor is his daughter's upcoming chemotherapy, which he reports is difficult, as his daughter gets very sick. Pt was supportive and attentive to others in the group. Pt seemed to benefit from support from peers. Will continue IOP tx to promote healthy coping mechanisms, reduce negative thinking patterns, and prevent decompensation.
--- NOTE | 2025-02-15 10:10 | BH.SGPN.GN ---
Behaviors/Verbalizations/Mental Status: []Pt alert and oriented, casually dressed and groomed. Eye contact good. Motor activity appropriate. Speech within normal limits. Affect congruent, mood anxious. Thoughts linear, logical, no signs of hallucinations or delusions. Client Response/Progress/Benefit: [] Pt took notes and contributed to group discussions. Attentive during psychoeducation on growth mindset. Interactive group discussion on fixed mindset in which group verbalized their current fixed mindsets and how they affect their mental health. Pt shared common fixed mindset thoughts they have. Pt shared a personal fixed thought I won?t be able to think differently.? Pt able to connect negative impact fixed thoughts have on functioning. Pt benefited from increased awareness of growth mindset and fixed thoughts and how fixed thoughts impact their mental health. Will continue IOP tx challenge negative thoughts, increase healthy coping skills, and prevent decompensation.
--- NOTE | 2025-02-15 11:10 | BH.SGPN.GN ---
Behaviors/Verbalizations/Mental Status: []Pt alert and oriented, neatly dressed and groomed. Eye contact good. Motor activity appropriate. Speech within normal limits. Affect congruent, mood content. Thoughts linear, logical, no signs of hallucinations or delusions. Client Response/Progress/Benefit: [] Pt was an active participant during activity and discussion. Pt did well to remain attentive and participate as group worked on identifying characteristics and benefits of adopting a growth mindset. Worked with fellow participants in reframing the example fixed thoughts into growth mindset thoughts. Pt worked on changing own fixed thought. Pt?s reframed thought was ?I can stop and listen to feedback from my support system.? Pt attentive during discussion about different strategies that can help with fostering a growth mindset. Pt appeared to benefit from challenging own thoughts and engaging in the activity. Pt will continue IOP tx to improve self-care practices and improve mood stability. Narrative Note: []
--- NOTE | 2025-02-17 09:00 | BH.SGPN.GN ---
Behaviors/Verbalizations/Mental Status: [] Pt alert and oriented, Casually dressed and groomed. Eye contact good. Motor activity appropriate. Speech within normal limits. Affect congruent, mood anxious. Thoughts linear, logical, no signs of hallucinations or delusions. Reviewed pt?s symptom tracker today, denies suicidal ideation, plan, and intent.02/17/25. Client Response/Progress/Benefit: []Pt was an active participant in group discussions. Attentive. Per patients daily symptom tracker, pt indicates a 3/5 for depression and a 1/5 for anxiety, with 5 being severe. Pt shared that they had a difficult week. Pt reported that he worked fro 6 hours straight the previous day with no breaks, causing him to be irritable with his family. Pt's daughter having her 10th round of chemo today was another stressor causing him to be anxious and irritable. Pt reported his mental health positive as showing up for group today, despite having a bad week. Pt stated this his overall week was filled with behavioral problems. Pt was supportive and attentive to others in the group. Pt seemed to benefit from support from peers. Will continue IOP tx to promote healthy coping mechanisms, reduce negative thinking patterns, and prevent decompensation.
--- NOTE | 2025-02-17 10:10 | BH.SGPN.GN ---
Behaviors/Verbalizations/Mental Status: []Pt alert and oriented, casually dressed and groomed. Eye contact good. Motor activity appropriate. Speech within normal limits. Affect congruent, mood dysthymic. Thoughts linear, logical, no signs of hallucinations or delusions. Client Response/Progress/Benefit: [] Pt responded well to session AEB pt listening attentively to others and providing input throughout group discussions. Pt worked with group to identify potential barriers to effective problem-solving. Pt attentive and engaged during psychoeducation about the different problem-solving styles (impulsive-careless, avoidant, and problem solving). Pt shared current problem-solving style they utilize is avoidance style.? Pt seemed to benefit from increased awareness of current problem-solving style and the impact this style has on their mental health. Will continue IOP tx to prevent decompensation, increase consistent use of healthy coping skills, challenge negative thoughts. Narrative Note: []
--- NOTE | 2025-02-17 11:00 | BH.SGPN.GN ---
Behaviors/Verbalizations/Mental Status: []Client alert and oriented, casually dressed and groomed. Eye contact good. Motor activity appropriate. Speech within normal limits. Affect congruent, mood euthymic. Thoughts linear, logical, no signs of hallucinations or delusions. Client Response/Progress/Benefit: [] Pt engaged in session AEB contributing to discussion and engaging in small group. Attentive during discussion on strategies for more effectively solving problems in personal life. Pt participated in small group for activity and did well practicing problem-solving skills with the group in the moment. Pt identified a current problem they are struggling to solve as: communicating in healthy ways with family. Reports next step in resolving this as: practicing sitting in silience before speaking up. Appeared to benefit from gaining strategies to help Pt better manage daily problems. Will continue IOP tx improve distress tolerance, challenge distortions, and prevent decompensation. Narrative Note: []
--- NOTE | 2025-02-17 15:12 | BH.COMM ---
Communication Note Communication with Client Communication Note: At the request of pt this therapist reached out to his . Spoke with Radha Kaufman for 40 minutes regarding her perspective on his progress as well as current struggles.
--- NOTE | 2025-02-19 09:00 | BH.SGPN.GN ---
Behaviors/Verbalizations/Mental Status: [] Eye contact is good. Motor activity is appropriate. Appearance is casual. Speech is Appropriate. Mood is euthymic. Affect is full. Thoughts are linear and logical. No evidence of psychosis. Reviewed daily check in sheet and no reports of suicidal ideations or intent. Client Response/Progress/Benefit: [] Pt was an active participant in group discussions. Attentive. Daily symptom tracker notes 04/26 for depression, anxiety, and agitation. He shared with the group that he has had a very challenging week in regarding to emotion regulation. Reflected on the fact that today steward the anniversary of getting discharged from residential. This has allowed some perspective which he has utilized in action strategies for mood management. ? Day 3 on no arguments at home?. Shared his new proactive distress strategies. Progress noted. Benefited from group support, encouragement, and feedback. Will continue in IOP to prevent decompensation, regulate emotions, and increase healthy coping skills. Narrative Note: []
--- NOTE | 2025-02-19 10:10 | BH.SGPN.GN ---
Behaviors/Verbalizations/Mental Status: [] Pt alert and oriented, casually dressed and groomed. Eye contact good. Motor activity appropriate. Speech within normal limits. Affect congruent, mood euthymic. Thoughts linear, logical, no signs of hallucinations or delusions. Client Response/Progress/Benefit: [] Client engaged during group session as evidenced by contributions during group discussions, appearing to listen to others, and taking notes. Client engaged in small group discussion about barriers that keep people from having difficult conversations. Group identified potential reasons individuals avoid difficult conversations which included; feeling uncomfortable, reaction of others, fear, and not in a good place mentally. Group also identified benefits to having crucial conversations. Pt identified that when having crucial conversations, he worries about the outcome. Client seemed to benefit from increased awareness and education about importance of having difficult conversations and recognizing the impact of avoiding such conversations. Client to continue IOP to prevent decompensation, increase healthy coping, and improve functioning. Narrative Note: []
--- NOTE | 2025-02-19 11:15 | BH.MDN_ITS ---
Multi-Disciplinary Note Note 45-min Individual: Time Started:: 11:15 Date: 02/19/25 Purpose of session/treatment goals addressed:: Utilized the session to provide psychoeducation on [id number] strategies for anger management. Focused on Delay, Distraction, and Decide as well as DBT skill of STOP. Eye Contact:: Good Motor Activity:: Appropriate Appearance:: Casual Speech:: Appropriate Mood:: Euthymic Affect:: Full Thoughts:: Linear, Logical and No evidence of hallucinations/delusions noted Staff Interventions:: thought challenging, psychoeducation on: (STOP and 3 D's), mindfulness skills, discharge planning (Information on local [facility] support groups, plans to attend [facility] aftercare, will reach out to pt's therapist) and taught coping skills Client Response:: On 02/17/25, therapist spoke with the client?s , who expressed concerns regarding impulse control, social cues, and anger management. She provided a recent example to illustrate her observations and shared her belief that the client struggles with re-gmx-[id number] regulation skills when frustrated. She noted that he tends to push himself at work, which increases frustration and is often displaced onto family members. She also voiced concern about potential decompensation following IOP discharge. The client acknowledged these challenges, stating, ?It?s been a rough 10 days. The client was receptive to psychoeducation on Dialectical Behavior Therapy (DBT) skills for managing emotion dysregulation in the moment. Continued discussion focused on the impact of unrealistic expectations and ?should? statements on his beliefs, perspectives, emotions, and behaviors. Risks/Concerns:: no risks or concerns noted. Progress Toward Goals/Plan:: Progress noted. The client has been consist ent and engaged in group sessions. He verbalizes strategies to proactively manage emotions, including taking breaks throughout the workday, avoiding calls and emails after hours, and resuming daily coping skills such as meditation and reflection. Therapist continues to address the client?s unrealistic expectations of himself and others and their impact on mental health and relationships. Today?s focus was on [id number] emotion regulation skills. The plan is for discharge next week. The client will continue care with his outpatient therapist, Alex Rice, and is agreeable to participate in [facility] After Group and a local [facility] support group. Time Stopped:: 12:00
== END 2025-02-19 23:59 ==
LOC: BHIOP 08:09
PROVIDERS: PCP Internal Medicine; Referring Provider Internal Medicine; Visit Provider Internal Medicine
DX: F33.2 Major depressive disorder, recurrent severe without psychotic features (principal)
CPT/HCPCS: S9480; 90834; 90837; 90853

== ENCOUNTER 2025-02-22 08:32 | Outpatient (RCR) | payer OTHER, SELFPAY ==
--- NOTE | 2025-02-22 09:00 | BH.SGPN.GN ---
Behaviors/Verbalizations/Mental Status: [] Pt alert and oriented, neatly dressed and groomed. Eye contact good. Motor activity appropriate. Speech within normal limits. Affect constricted, mood stressed and motivated. Thoughts linear, logical, no signs of hallucinations or delusions. Reviewed pt?s symptom tracker, no risk for suicidal ideation, plan, or intent 02/22/25. Client Response/Progress/Benefit: []Pt was an active participant in group discussions. Attentive. Able to identify mental health wins including ?we went out as a family this weekend instead of shutting in? and pt shared his family has been fighting less. Pt's stressor today is ?the usual stressor with my daughter, work, and IOP.? The group offered pt suggests managing this stressor and emotional support which pt reported was helpful. Pt is feeling ?motivated? this morning. Pt receptive to feedback from peers. Benefited from group support, encouragement, and feedback. Progress noted. Will continue IOP tx to promote mood stability, combat distortions, and reinforce self-care practices. Narrative Note: []
--- NOTE | 2025-02-22 10:10 | BH.SGPN.GN ---
Behaviors/Verbalizations/Mental Status: []Eye contact good, Motor activity is appropriate, Appearance is neat. Speech appropriate. Mood calm. Affect congruent. Thoughts are linear and logical. No evidence of psychosis. Client Response/Progress/Benefit: [] Pt was an active participant during interactive group discussions. Attentive during discussion of the different types of boundaries (rigid, porous, healthy) Took notes and provided input. Contributed to the discussion on defining boundaries and the benefits and barriers to them. Active participant in the boundary continuum activity. Identified boundary type as more rigid and stated that it took him a long time to ask for help and talk about his mental health. Group discussed mental health benefits to establishing boundaries, and situations in which lessening boundaries are appropriate. Pt benefited from increased awareness and insight on the importance of boundary setting. Pt will continue in IOP to promote mood stability, reinforce healthy coping skills, and combat distortions. ?? Narrative Note: []
--- NOTE | 2025-02-22 11:10 | BH.SGPN.GN ---
Behaviors/Verbalizations/Mental Status: []Pt alert and oriented, casually dressed and groomed. Eye contact good. Motor activity appropriate. Speech within normal limits. Affect congruent, mood anxious. Thoughts linear, logical, no signs of hallucinations or delusions. Client Response/Progress/Benefit: [] Client responded well to session AEB listening attentively to peers, providing input, as well as taking notes throughout. Group discussed different styles of boundary setting. Participated in small group discussion brainstorming various strategies for improving healthy boundary setting. Pt took time to complete reflection on which skills would like to implement to improve boundaries. Seemed to benefit from increased awareness of how different boundary styles can impact mental health. Pt stated he learned that he has healthier boundaries then he thought. Pt reported he would like continue working on being less rigid by being more adaptable. Will continue IOP tx prevent decompensation, challenge negative thoughts, and consistently apply healthy coping skills.
--- NOTE | 2025-02-24 09:00 | BH.SGPN.GN ---
Behaviors/Verbalizations/Mental Status: [] Pt alert and oriented, Casually dressed and groomed. Eye contact good. Motor activity appropriate. Speech within normal limits. Affect congruent, mood calm. Thoughts linear, logical, no signs of hallucinations or delusions. Reviewed pt?s symptom tracker today, denies suicidal ideation, plan, and intent.02/24/25. Client Response/Progress/Benefit: []Pt was an active participant in group discussions. Attentive. Per patients daily symptom tracker, pt indicates a 0/5 for depression and a 1/5 for anxiety, with 5 being severe. Pt shared his mental health positive as showing up to group on time despite being at a concert the previous night. Pt stated that going out to a concert felt like a needed bit of normality and that he had a good time. his other mental health positive was closing on an important deal at work. pt stressor is figuring his schedule after discharging from group on Saturday, stating that he wants to do aftercare, but also has a few work trips planned. Pt was supportive and attentive to others in the group. Pt seemed to benefit from support from peers. Pt will discharge from [facility] on 02/25/25.
--- NOTE | 2025-02-24 10:10 | BH.SGPN.GN ---
Behaviors/Verbalizations/Mental Status: []Pt alert and oriented, casually dressed and groomed. Eye contact good. Motor activity appropriate. Speech within normal limits. Affect congruent, mood euthymic. Thoughts linear, logical, no signs of hallucinations or delusions. Client Response/Progress/Benefit: [] Pt was an active participant in group discussions and activity. Attentive during psychoeducation. Pt along with peers were able to identify several negatives on the picture given to the group. Pt and peers also identified positives in the picture and made the connect that finding positives is much more difficult. Interactive discussion on the definition of perspective, how perspective is formed, and why perspective is important in treatment. Pt along with peers also identified that perspective can either motivate and encourage treatment or be a barrier to receiving help. Pt shared that his childhood had a big impact on his perspective, mainly because she wasn't given much recognition and was told more on how he can improve. Will continue in IOP to promote gains, further decrease anxiety, and prevent decompensation. Narrative Note: []
--- NOTE | 2025-02-24 11:10 | BH.SGPN.GN ---
Behaviors/Verbalizations/Mental Status: [] Pt alert and oriented, casually dressed and groomed. Eye contact good. Motor activity appropriate. Speech within normal limits. Affect congruent, mood euthymic and anxious . Thoughts linear, logical, no signs of hallucinations or delusions. Client Response/Progress/Benefit: [] Pt was attentive and contributed in small and larger group discussion. Pt completed strengths exploration worksheet and identified personal strengths to include: honesty and humor. Pt able to acknowledge how these strengths are helping him and can continue to help pt in his mental health journey. Shared wanting to focus on fostering personal strengths by picking 2 or 3 things from iop each week and practice them. Benefited from identifying personal strengths and strategies for enhancing use of identified strengths. Pt to continue IOP tx to promote use of healthy coping skills, increase self-confidence, and reduce negative thinking patterns. Narrative Note: []
--- NOTE | 2025-02-26 07:47 | PCM.BH.PN ---
Intake Vital Signs 01/08/25 08:48 02/26/25 07:47 Height 6 ft 6 ft Weight: 268 lb BP 146/92 H Pulse 82 Intake Visit Reasons: follow up Allergies No Known Allergies Allergy (Verified 01/08/25 08:26) Medications ?Medication ?Instructions ?Recorded ?Confirmed ?Type desvenlafaxine succinate 100 mg 100 mg PO DAILY 01/08/25 01/08/25 History tablet,extended release 24 hr (Pristiq) HPI () History of Present Illness History provided by: patient Chief complaint: IOP intake for MDD HPI: Stuart is a 59y/o male who presents today for follow up evaluation. Patient reports that he has been doing largely well. Has had some sexual side effects with the use of desvenlafaxine but has otherwise been tolerating well. Had been started on Pristiq about a year ago when in rehab. Does follow with Alex Gambino for counseling, and has done EMDR in the past. 26 year old daughter is diagnosed with Hodgkins Lymphoma. This has caused a significant amount of anxiety for the past year. Was finding that he was vacillating between depression and anxiety prior to starting IOP. At this time reports to being largely stable. Review of systems () Constitutional Denies: fever(s), chills, change in weight or fatigue Eyes Denies: change in vision or blurry vision Ears, Nose, Mouth, Throat Denies: throat pain, neck pain or change in hearing Cardiovascular Denies: chest pain, palpitations or dyspnea Respiratory Denies: dyspnea, cough or wheezing Gastrointestinal Denies: abdominal pain, nausea, vomiting, diarrhea or constipation Genitourinary Denies: dysuria or urinary frequency Musculoskeletal Denies: back pain, neck pain, joint pain or muscle weakness Integumentary/Breast Denies: rash or new lesions Neurological Denies: headache(s), dizziness or confusion Endocrine Denies: fatigue or excessive sweating Hematologic/Lymphatic Denies: easy bruising or easy bleeding Allergic/Immunologic Denies: wheezing Exam Mental Status Exam- Psych () Appearance casually dressed, adequately groomed and no apparent distress Attitude cooperative and calm Activity/Motor Behavior MSE activity/motor behavior finding no adventitious movements Speech regular rate and regular volume Mood OK Affect full range Thought Process linear and logical Thought Content no delusions and no hallucinations Suicidal Ideation none Homicidal Ideation none Attention intact Concentration intact Sensorium/Orientation awake and alert Memory/Cognition intact Insight fair Judgement fair Assessment & Plan (BH) Assessment & Plan (1) MDD (major depressive disorder), recurrent severe, without psychosis: Plan: - continue pristiq 100 mg every day - discharging from [facility] today Charges/Coding Behavior Health Behavior Health EST Pt E/M: 76185 Est Pt Level III
--- NOTE | 2025-02-26 09:00 | BH.SGPN.GN ---
Behaviors/Verbalizations/Mental Status: [] Eye contact is good. Motor activity is appropriate. Appearance is casual. Speech is Appropriate. Mood is euthymic. Affect is full. Thoughts are linear and logical. No evidence of psychosis. Reviewed daily check in sheet and no reports of suicidal ideations or intent. Client Response/Progress/Benefit: [] Pt was an active participant in group discussions. Attentive. Daily symptom tracker notes 04/26 for anxiety. Able to identify several mental health wins. Utilizing healthy habits. Shared with the group that he is scheduled to discharge successfully from [facility] today. Aftercare is set with therapist and psychiatrist. Anxious about returning to traveling for work however is ?optimistic?. Reports progress in [facility]. Benefited from group support, encouragement, and feedback. Will be discharged today. Narrative Note: []
--- NOTE | 2025-02-26 10:10 | BH.SGPN.GN ---
Behaviors/Verbalizations/Mental Status: [] Motor activity is appropriate. Appearance is casual. Speech is Appropriate. Mood is euthymic. Affect is full. Thoughts are linear and logical. No evidence of psychosis. Client Response/Progress/Benefit: [] Pt was an engaged participant AEB listening attentively to others, taking notes, and providing feedback in small group discussions. Attentive during psychoeducation AEB by note taking and providing some input. Pt worked along with peers in small groups to define inappropriate guilt and appropriate guilt. Interactive discussion on examples of both inappropriate and appropriate guilt. Pt able to connect impact inappropriate guilt can have on MH. Benefited from increased awareness of guilt and the differences between appropriate and inappropriate guilt. Pt to discharge successfully from program today. Narrative Note: []
--- NOTE | 2025-02-26 11:10 | BH.SGPN.GN ---
Behaviors/Verbalizations/Mental Status: [] Pt alert and oriented, casually dressed and groomed. Eye contact good. Motor activity appropriate. Speech within normal limits. Affect congruent, mood euthymic. Thoughts linear, logical, no signs of hallucinations or delusions. Client Response/Progress/Benefit: [] Pt was an engaged participant AEB listening attentively to others and providing input throughout group. Pt worked within their small group to identify strategies to manage inappropriate guilt. Identified a personal example of inappropriate guilt as ?feeling guilty when practicing self care.? Pt wants to work on combatting inappropriate guilt by ?challenge thought processes? Pt seemed to benefit from learning about strategies to manage appropriate and inappropriate guilt. Pt to continue IOP tx to prevent decompensation, gain healthy coping skills, and increase functioning. Narrative Note: []
--- NOTE | 2025-02-26 14:09 | BH.DS ---
Discharge Summary Demographics Date of Admission:: 01/04/25 Discharge Date: 02/26/25 Presenting Problems at Admission:: Pt is a 59 year old make with dx of Major Depressive Disorder, recurrent, severe w/o psychosis. Previous admission to psychiatric residential facility in [place] in 2023. According to pt he completed a 30 days stay in residential which included a PHP program. He was recommended to follow up with IOP however never followed through. Reports that he mood was mostly stable till his daughter was diagnosed with cancer in September 2024 at which point he began to spiral. Daughter was dx'd with Hodgins Lymphoma and is currently undergoing chemo therapy. She has had to quit her job in [place] and move back with with parents (pt and his ) here is [place] as she undergoes treatment. Reports progressively worsening depression with low energy, hopelessness, poor concentration, poor sleep, poor appetite, and passive thoughts of . He describes mental health spiral as mood dysregulation, unhealthy habits, ruminations, worry, uncertainty. I'm falling apart at the seams. Denies active suicidal ideations, plan, or intent. No hx of attempts. Denies HI or psychosis. Denies substance abuse. Bi-monthly counseling. Medication compliant. Pt is concerned that recent significant psychosocial stressors will lead to continued decompensation and returning to residential treatment unless he engaged in structure treatment. He also reports his is concerned for his mental health and recent regression as well suggesting he seek out IOP. Discharge Diagnoses:: MDD (major depressive disorder), recurrent severe, without psychosis; F33.2 Reason for Discharge:: No longer meets criteria for IOP level of care. Completed treatment plan goals. Successful discharge Treatment Progress During Treatment & Response: The patient demonstrated consistent engagement throughout the course of IOP treatment, attending every scheduled session without absence. Outcome measures indicate a 40% overall reduction in symptoms since admission. Notably, the patient experienced a 50% reduction in anxiety-related symptoms and a 40% reduction in depressive symptoms. However, scores within the anger domain remained unchanged, which is a clinical concern and should be a focus in ongoing individual therapy. The patient self-reports significant progress, attributing much of the improvement to the supportive nature of the group environment. Approximately two weeks prior to discharge, the patient experienced a mild regression in symptoms. However, he effectively utilized this experience as a learning opportunity, implementing proactive coping strategies to prevent further escalation. Throughout treatment, the patient demonstrated increased awareness and understanding of cognitive distortions, mistaken beliefs, and [id number] strategies to manage irritability and anxiety. Collateral information provided by the patient's spouse during the course of treatment corroborated both the challenges and progress observed. Issues Still to be Addressed:: The patient?s primary ongoing stressor remains his daughter?s significant medical condition, which continues to impact his emotional well-being. Continued individual counseling is strongly recommended to address unresolved anger issues and to support the patient in managing persistent stressors. It is further recommended that the patient continue working on the following therapeutic goals: Reframing and challenging cognitive distortions and mistaken beliefs Developing and practicing anger management skills Increasing acceptance and awareness of the consequences of unrealistic expectations Enhancing ability to live in the present moment Practicing spontaneity over rigid planning Establishing and maintaining a healthy balance between work and home life These areas of focus will support the patient?s continued progress and emotional resilience beyond the IOP setting. Discharge Recommendations/Instructions:: Ongoing counseling with DIONNE Blackwood at [facility] with next appointment in late February. Psychiatrist appointment with Dr. Goncalves at [facility] in April. He will also participate in local [facility] as well as [facility] aftercare group. Discharge Handout
== END 2025-02-26 12:33 | disposition home or self-care (01) ==
LOC: BHIOP 08:32
PROVIDERS: PCP Internal Medicine; Referring Provider Internal Medicine; Visit Provider Internal Medicine
DX: F33.2 Major depressive disorder, recurrent severe without psychotic features (principal)
CPT/HCPCS: S9480; 90853

== ENCOUNTER 2025-04-01 14:17 | Outpatient (RCR) | payer OTHER, SELFPAY ==
--- NOTE | 2025-04-01 14:00 | BH.SGPN.GN ---
Behaviors/Verbalizations/Mental Status: []Pt alert and oriented, neatly dressed and groomed. Eye contact good. Motor activity appropriate. Speech within normal limits. Affect constricted, mood euthymic and stressed. Thoughts linear, logical, no signs of hallucinations or delusions. Client Response/Progress/Benefit: [] Pt responded well to session, completed their self-reflection worksheet. Pt noted they have met with their therapist since last session, they have been taking medication consistently, and used coping skills like music, deep breathing, goal setting, reframing, and communicating. Pt engaged well during the discussion of the components of self-compassion. Pt connected with the benefits of self-compassion and participated in the activity of reframing a recent setback using self-compassion. Pt used self-compassion to combat negative self-talk and shared plan to work on this throughout the week.?Pt appeared to benefit from practicing self-compassion and connecting with peers. Will continue aftercare to promote mood stability and reinforce healthy coping skills.? Narrative Note: []
--- NOTE | 2025-04-01 14:30 | BH.COMM ---
Communication Note Communication with Client Communication Note: Patient completed IOP and presents today to start relapse prevention group which meets once weekly (1.5 hours) for 8 weeks. Case discussed with Dr. Goncalves with plan to admit with dx of F33.2
== END 2025-04-21 23:59 ==
LOC: BHOG 14:17
PROVIDERS: PCP Internal Medicine; Referring Provider Student in an Organized Health Care Education/Training Program; Visit Provider Student in an Organized Health Care Education/Training Program
DX: F33.2 Major depressive disorder, recurrent severe without psychotic features (principal)
CPT/HCPCS: 90853